=== PATIENT | male | born 1970 | race Caucasian/White ===

== ENCOUNTER 2018-05-21 16:25 | Emergency (ER) | END 2018-05-21 18:15 | disposition left against medical advice (07) | LOC: ER 16:25 | DX: Z53.21 Procedure and treatment not carried out due to patient leaving prior to being seen by health care provider (principal) ==

== ENCOUNTER 2019-10-23 05:51 | Inpatient (IN) | payer BC ==
[2019-10-23 06:47] LABS: ALKALINE PHOSPHATASE 75 U/L (38-126); ANION GAP 10 (5-19); ASPARTATE AMINO TRANSFERASE 26 U/L (17-59); BILIRUBIN,DIRECT 0.2 mg/dL (0.0-0.4); BILIRUBIN,TOTAL 0.9 mg/dL (0.2-1.3); BLOOD UREA NITROGEN 18 mg/dL (7-20); CALCIUM 9.9 mg/dL (8.4-10.2); CARBON DIOXIDE 31 mmol/L (22-30); CHLORIDE 95 mmol/L (98-107); GLUCOSE 164 mg/dL (75-110); POTASSIUM 4.7 mmol/L (3.6-5.0); TOTAL PROTEIN 7.6 g/dL (6.3-8.2)
[2019-10-23 06:52] LABS: ABSOLUTE EOSINOPHILS # (AUTO) 0.1 10^3/uL (0.0-0.6); ABSOLUTE LYMPHOCYTES (AUTO) 2.3 10^3/uL (0.5-4.7); ABSOLUTE MONOCYTES (AUTO) 0.9 10^3/uL (0.1-1.4); ABSOLUTE NEUT (AUTO) 7.9 10^3/uL (1.7-8.2); BASOPHILS % (AUTO) 0.4 % (0-2); HEMATOCRIT 45.8 % (37.9-51.0); HEMOGLOBIN 15.1 g/dL (13.5-17.0); LYMPHOCYTES % (AUTO) 20.2 % (13-45); MEAN CORPUSCULAR HEMOGLOBIN 25.4 pg (27.0-33.4); MEAN CORPUSCULAR HGB CONC 33.1 g/dL (32.0-36.0); MEAN CORPUSCULAR VOLUME 77 fl (80-97); MONOCYTES % (AUTO) 8.2 % (3-13); PLATELET COUNT 262 10^3/uL (150-450); RED BLOOD COUNT 5.96 10^6/uL (4.35-5.55); RED CELL DISTRIBUTION WIDTH 17.9 % (11.5-14.0); SEGMENTED NEUTROPHILS % (AUTO) 70.2 % (42-78); TOTAL CELLS COUNTED % (AUTO) 100 %; WHITE BLOOD COUNT 11.3 10^3/uL (4.0-10.5)
[2019-10-23] MEDS ORDERED: ONDANSETRON HCL INJ/PF 4 MG/2 ML SDV IV ONE (09:48)
[2019-10-23] MEDS ORDERED: KETOROLAC TROMETHAMINE INJ/PF 30 MG/1 ML SDV IV ONE (09:48)
--- NOTE | 2019-10-23 09:54 | ER Document Report ---
ED General - General Chief Complaint: Abdominal Pain Stated Complaint: LOWER ABDOMINAL PAIN Time Seen by Provider: 10/23/19 09:36 Notes: Patient is a 49-year-old white male with a past medical history of severe lower ventral wall abdominal hernia and diabetes who presents to the emergency department with a chief complaint of right upper quadrant abdominal pain that began about 3 days ago. He states he was eating [employer] pizza, he had just finished a pizza when he suddenly felt very bloated. He states he felt like his abdomen was distended and he was extremely full. He states later that night he began vomiting. He vomited several times overnight. States the next morning he was able to eat some soup and went about 24 hours without vomiting. He states yesterday he began vomiting again. He reports a burning sensation in the right upper quadrant, worse with lying back, better with pressing on it. Admits to ongoing nausea and vomiting. He denies any known fever or diarrhea. His last bowel movement was yesterday evening and was normal formed stool. He denies any radiation of pain. - Related Data Allergies/Adverse Reactions: codeine Allergy (Verified 10/23/19 05:59) Home Medications: LISINOPRIL Past Medical History - Social History Smoking Status: Former Smoker Chew tobacco use (# tins/day): Yes Family History: None Patient has suicidal ideation: No Patient has homicidal ideation: No Review of Systems - Review of Systems Gastrointestinal: Abdominal pain, Nausea, Vomiting -: Yes All other systems reviewed and negative Physical Exam - Vital signs Vitals: Temp Pulse Resp BP Pulse Ox 97.7 F 125 H 24 H 175/89 H 98 10/23/19 05:58 10/23/19 05:58 10/23/19 05:58 10/23/19 05:58 10/23/19 05:58 - General General appearance: Appears well, Alert In distress: None - Respiratory Respiratory status: No respiratory distress Chest status: Nontender Breath sounds: Normal Chest palpation: Normal - Cardiovascular Rhythm: Regular Heart sounds: Normal auscultation - Abdominal Inspection: Other - Morbidly obese abdomen, protuberant. There is a significant lower ventral wall hernia with bowel sounds present. He is tender in the right upper quadrant, reports pain worse with lying supine. Bowel sounds: Normal - Back Back: Normal, Nontender - Neurological Neuro grossly intact: Yes Cognition: Normal Orientation: AAOx4 Tin Coma Scale Eye Opening: Spontaneous Tin Coma Scale Verbal: Oriented [place] Coma Scale Motor: Obeys Commands [place] Coma Scale Total: 15 Speech: Normal - Psychological Associated symptoms: Normal affect, Normal mood - Skin Skin Temperature: Warm Skin Moisture: Dry Skin Color: Normal Course - Re-evaluation Re-evalutation: 10/23/19 11:[address] Gerber, surgery on-call regarding the patient's condition and the findings on CAT scan. He advised to get a preop EKG, NG tube and admit the patient to medicine service. I called and spoke with the hospitalist, Dr. Wolfe who advised he will come to the emergency department and evaluate the patient for admission. - Vital Signs Vital signs: Temp Pulse Resp BP Pulse Ox 98.5 F 103 H 20 137/92 H 93 10/23/19 13:29 10/23/19 13:29 10/23/19 13:29 10/23/19 13:29 10/23/19 13:29 - Laboratory Result Diagrams: 10/23/19 06:19 10/23/19 06:19 Laboratory results interpreted by me: 10/23/19 10/23/19 10/23/19 06:19 06:19 10:25 WBC 11.3 H RBC 5.96 H MCV 77 L MCH 25.4 L RDW 17.9 H VBG pH 7.47 H Sodium 136.3 L Chloride 95 L Carbon Dioxide 31 H Glucose 164 H Urine Protein Urine Ketones Urine Bilirubin 10/23/19 10:40 WBC RBC MCV MCH RDW VBG pH Sodium Chloride Carbon Dioxide Glucose Urine Protein >=500 H Urine Ketones TRACE H Urine Bilirubin SMALL H Discharge - Discharge Clinical Impression: Small bowel obstruction Condition: Stable Disposition: ADMITTED INPATIENT Admitting Provider: Aiden (Hospitalist) Unit Admitted: Surgical Floor
[2019-10-23 10:46] LABS: VENOUS BLOOD BASE EXCESS 5.6 mmol/L; VENOUS BLOOD PCO2 42.3 mmHg (35-63); VENOUS BLOOD PH 7.47 (7.30-7.42)
[2019-10-23 11:09] LABS: APPEARANCE,URINE SLIGHTLY-CLOUDY; BILIRUBIN,URINE SMALL (NEGATIVE); COLOR,URINE AMBER; GLUCOSE, URINE NEGATIVE (NEGATIVE); KETONES,URINE TRACE mg/dL (NEGATIVE); LEUKOCYTE ESTERASE,URINE NEGATIVE (NEGATIVE); NITRITE,URINE NEGATIVE (NEGATIVE); PROTEIN,URINE >=500 mg/dL (NEGATIVE); URINE SPECIFIC GRAVITY 1.028; UROBILINOGEN,URINE NEGATIVE mg/dL (<2.0)
[2019-10-23] MEDS ORDERED: NORMAL SALINE 1000 ML 1,000 ML IV ONE (11:28)
--- NOTE | 2019-10-23 11:31 | RADIOLOGY REPORT (SQ) ---
EXAM DESCRIPTION: CT ABD/PELVIS WITH IV ONLY COMPLETED DATE/TIME: 10/23/2019 9:54 am REASON FOR STUDY: abd pain/ vomit. Right upper quadrant abdominal pain. COMPARISON: None. TECHNIQUE: CT scan of the abdomen and pelvis performed using helical scanning technique with dynamic intravenous contrast injection. No oral contrast. Images reviewed with lung, soft tissue, and bone windows. Reconstructed coronal and sagittal MPR images reviewed. Delayed images for evaluation of the urinary system also acquired. All images stored on PACS. All CT scanners at this facility use dose modulation, iterative reconstruction, and/or weight based d osing when appropriate to reduce radiation dose to as low as reasonably achievable (ALARA). [facility]: Dose Right [facility]: CareDose [facility]: Dose Right [facility]: Teradose 4D [facility]: [employer] CONTRAST TYPE AND DOSE: contrast/concentration: Isovue 350.00 mg/ml; Total Contrast Delivered: 100.0 ml; Total Saline Delivered: 70.0 ml RENAL FUNCTION: GFR > 60. RADIATION DOSE: CT Rad equipment meets quality standard of care and radiation dose reduction techniq ues were employed. CTDIvol: 21.1 mGy. DLP: 2727 mGy-cm.. LIMITATIONS: None. FINDINGS: LOWER CHEST: No significant findings. No nodules or infiltrates. LIVER: The liver has normal size and contour. There is moderate diffuse hepatic steatosis. No focal hepatic mass. Hepatic and portal veins are patent. SPLEEN: Normal size. No focal lesions. PANCREAS: No masses. No significant calcifications. No adjacent inflammation or peripancreatic fluid collections. Pancreatic duct not dilated. GALLBLADDER: No identified stones by CT criteria. No inflammatory changes to suggest cholecystitis. ADRENAL GLANDS: No significant masses or asymmetry. RIGHT KIDNEY AND URETER: No solid masses. No significant calcifications. No hydronephrosis or hyd roureter. LEFT KIDNEY AND URETER: No solid masses. No significant calcifications. No hydronephrosis or hydr oureter. AORTA AND VESSELS: No aneurysm. No dissection. Renal arteries, SMA, celiac without stenosis. RETROPERITONEUM: No retroperitoneal adenopathy, hemorrhage or masses. BOWEL AND PERITONEAL CAVITY: Multiple loops of dilated small bowel. There is a ventral hernia contai candelario loops of small bowel with abdominal wall defect measuring 5 cm diameter. There is a transition point in the small bowel within the hernia sac. No surrounding fluid or evidence of pneumatosis inte stinalis. The distal small bowel and colon are decompressed. There is no fluid in the hernia sac. No pneumoperitoneum or significant ascites. APPENDIX: Not visualized. PELVIS: The urinary bladder is decompressed. Prostate has normal size. ABDOMINAL WALL: Ventral hernia as described. Subcutaneous cellulitis involving the pannus. No subcu taneous fluid collection. BONES: No significant or acute findings. OTHER: No other significant finding. IMPRESSION: 1. Small-bowel obstruction with transition point within a ventral hernia. No evidence of bowel ische johana or perforation. 2. Moderate hepatic steatosis. COMMENT: Findings discussed with Silverio PEREZ on 10/23/2019 at 1122 hours. TECHNICAL DOCUMENTATION: JOB ID: [id number] Quality ID # [id number]: Final reports with documentation of one or more dose reduction techniques (e.g., Au tomated exposure control, adjustment of the mA and/or kV according to patient size, use of iterative reconstruction technique) 2010 [employer]- All Rights Reserved Reading location - IP/workstation name: [email or web address]
[2019-10-23] MEDS ORDERED: ROCURONIUM BROMIDE INJ 50 MG/5 ML VIAL IV ONE (11:43)
[2019-10-23] MEDS ORDERED: SUCCINYLCHOLINE CHLORIDE INJ 200 MG/10 ML VIAL ONE (11:43)
[2019-10-23] MEDS ORDERED: LIDOCAINE 2% INJ-PF (20 MG/ML) 2 ML AMPUL ONE (11:43)
[2019-10-23] MEDS ORDERED: ONDANSETRON HCL INJ/PF 4 MG/2 ML SDV IV PRN (12:33)
[2019-10-23] MEDS: RINGERS SOLUTION,LACTATED 1,000 ML IV PRN (13:20)
[2019-10-23] MEDS: ENALAPRILAT DIHYDRATE INJ/PF 1.25 MG/1 ML SDV IV SCH ×2 (13:53→23:13)
--- NOTE | 2019-10-23 14:11 | RADIOLOGY REPORT (SQ) ---
EXAM DESCRIPTION: CHEST SINGLE VIEW COMPLETED DATE/TIME: 10/23/2019 1:18 pm REASON FOR STUDY: post NG tube placement COMPARISON: None. EXAM PARAMETERS: NUMBER OF VIEWS: One view. TECHNIQUE: Single frontal radiographic view of the chest acquired for nasogastric tube placement. RADIATION DOSE: NA LIMITATIONS: Morbidly obese patient, portable technique FINDINGS: Nasogastric tube is seen in the esophagus over the lower thoracic spine. Tip and side-por t appear to be in stomach IMPRESSION: Nasogastric tube in good positioning TECHNICAL DOCUMENTATION: JOB ID: [id number] [employer]- All Rights Reserved Reading location - IP/workstation name: [email or web address]
[2019-10-23] MEDS ORDERED: VANCOMYCIN HCL INJ 1000 MG VIAL IV ONE (16:34)
[2019-10-23] MEDS ORDERED: VANCOMYCIN HCL 0 MG in DEXTROSE 5%-WATER 250 ML IV NR (16:45)
--- NOTE | 2019-10-23 16:50 | PDOC CONSULTATION ---
Consultation Consult Date: 10/23/19 Provider Consulted: DEMAR SORENSEN Consult reason:: Incarcerated and strangulated ventral hernia History of Present Illness Admission Date/PCP: 10/23/19 13:02 History of Present Illness: BRENDA MORALES is a 49 year old male, morbidly obese, BMI of 62, with an 8-year history of mid abdominal umbilical hernia which has grown in size causing discomfort. The patient gives a history of having eaten 1 pizza 3 nights ago following that he started complaining of abdominal pain, intense nausea, and emesis for the past 24 hours my. His last bowel movement was yesterday morning. No fever, no chills, no blood per rectum:. He has borderline diabetes, hypertension. A CT scan of the abdomen pelvis done today reveals a large, lower midline ventral hernia with a transition point in 1 of the loops of the incarcerated small bowel. His white blood cell count demonstrates a slight leukocytosis (11.3), his metabolic profile is within the normal limits, his fast ing blood sugars is 164, and his troponin is normal. Past Medical History Cardiac Medical History: Reports: Hypertension Endocrine Medical History: Reports: Diabetes Mellitus Type 2 - unmedicated Social History Smoking Status: Former Smoker Family History Family History: None, CAD, Hyperlipidemia, Malignancy Parental Family History Reviewed: No Children Family History Reviewed: No Sibling(s) Family History Reviewed.: No Medication/Allergy Home Medications: Aspirin [Ecotrin 81 mg EC Tablet] 81 mg PO DAILY 10/23/19 Lisinopril/Hydrochlorothiazide [Zestoretic 20-25 mg Tablet] 1 tab PO DAILY 10/23/19 Allergies/Adverse Reactions: codeine Allergy (Verified 10/23/19 14:09) Physical Exam Vital Signs: Temp Pulse Resp BP Pulse Ox 98.5 F 103 H 19 131/81 H 94 10/23/19 13:29 10/23/19 13:29 10/23/19 14:01 10/23/19 15:00 10/23/19 15:01 Intake & Output 10/22/19 10/23/19 10/24/19 06:59 06:59 06:59 Intake Total 1000 Output Total 850 Balance 150 Weight 191 kg General appearance: PRESENT: mild distress, obese Head exam: PRESENT: atraumatic, normocephalic Eye exam: PRESENT: EOMI Mouth exam: PRESENT: moist, neck supple, other - Obese Neck exam: PRESENT: full ROM Respiratory exam: PRESENT: clear to auscultation ozzy, decreased breath sounds Cardiovascular exam: PRESENT: RRR GI/Abdominal exam: PRESENT: hypoactive bowel sounds, soft, tenderness - On palpation of the lower midline abdomen just above the hernia site, other - Large for obesity, with large lower abdominal pannus containing the incarcerated bowel; skin overlying the hernia is erythematous, painful on palpation Rectal exam: PRESENT: deferred Extremities exam: PRESENT: full ROM Musculoskeletal exam: PRESENT: full ROM Neurological exam: PRESENT: alert, awake, oriented to time, CN II-XII grossly intact Psychiatric exam: PRESENT: agitated, anxious, depressed Skin exam: PRESENT: warm Results Laboratory Results: 10/23/19 06:19 10/23/19 06:19 10/23/19 10/23/19 10/23/19 06:19 06:19 10:25 WBC 11.3 H RBC 5.96 H Hgb 15.1 Hct 45.8 MCV 77 L MCH 25.4 L MCHC 33.1 RDW 17.9 H Plt Count 262 Seg Neutrophils % 70.2 VBG pH 7.47 H VBG pCO2 42.3 VBG HCO3 30.0 VBG Base Excess 5.6 Sodium 136.3 L Potassium 4.7 Chloride 95 L Carbon Dioxide 31 H Anion Gap 10 BUN 18 Creatinine 1.05 Est GFR ( Amer) > 60 Glucose 164 H Calcium 9.9 Total Bilirubin 0.9 AST 26 Alkaline Phosphatase 75 Total Protein 7.6 Albumin 4.0 Lipase 40.2 Urine Color Urine Appearance Urine pH Ur Specific [place] Urine Protein Urine Glucose (UA) Urine Ketones Urine Blood Urine Nitrite Ur Leukocyte Esterase Urine WBC (Auto) Urine RBC (Auto) 10/23/19 10:40 WBC RBC Hgb Hct MCV MCH MCHC RDW Plt Count Seg Neutrophils % VBG pH VBG pCO2 VBG HCO3 VBG Base Excess Sodium Potassium Chloride Carbon Dioxide Anion Gap BUN Creatinine Est GFR ( Amer) Glucose Calcium Total Bilirubin AST Alkaline Phosphatase Total Protein Albumin Lipase Urine Color [place] Urine Appearance SLIGHTLY-CLOUDY Urine pH 5.0 Ur Specific [place] 1.028 Urine Protein >=500 H Urine Glucose (UA) NEGATIVE Urine Ketones TRACE H Urine Blood NEGATIVE Urine Nitrite NEGATIVE Ur Leukocyte Esterase NEGATIVE Urine WBC (Auto) 2 Urine RBC (Auto) 7 10/23/19 06:19 Troponin I 0.012 Impressions: Chest X-Ray 10/23/19 00:00 IMPRESSION: Nasogastric tube in good positioning Abdomen/Pelvis CT 10/23/19 09:48 IMPRESSION: 1. Small-bowel obstruction with transition point within a ventral hernia. No evidence of bowel ischemia or perforation. 2. Moderate hepatic steatosis. Assessment & Plan - Diagnosis (1) Morbid obesity Is this a current diagnosis for this admission?: Yes (2) Incarcerated ventral hernia Is this a current diagnosis for this admission?: Yes (3) Small bowel obstruction Is this a current diagnosis for this admission?: Yes - Plan Summary Plan Summary: Assessment: Intense nausea, vomiting and abdominal pain for the past 3 days Physical exam demonstrates a large lower abdominal pannus containing loops of small bowel with erythema of the overlying skin Ventral hernia is incarcerated, possibly strangulated by physical exam due to the presence of pain and erythema of the skin CT scan of the abdomen pelvis confirms the physical findings Slight leukocytosis 11.3 Past medical history significant for type 2 diabetes (fasting blood sugar 164) Hypertension Morbid obesity with BMI of 62 Plan: Open ventral hernia repair with absorbable mesh and bilateral component separation tonight Procedure, risks, benefits, complications, alternatives, have been fully explained to the patient including the possibility of respiratory failure, prolonged endotracheal intubation, pneumonia, abdominal wound infection, bowel injury, stroke, preoperative and / or postoperative have been fully discussed with the patient, his questions answered to his satisfaction, and he decides to proceed Mefoxin 2 g IV piggyback preop Vancomycin 1.5 g IV piggyback preop Preop EKG
[2019-10-23] MEDS ORDERED: CEFTRIAXONE 2 GM/D5W RTU 2 GM/50 ML RTUPB IV ONE (17:30)
[2019-10-23] MEDS ORDERED: FENTANYL CITRATE INJ/PF 250 MCG/5 ML AMPULE ONE ×2 (17:37→18:53)
[2019-10-23] MEDS ORDERED: MORPHINE SULFATE 10 MG/ML INJ ONE (17:38)
[2019-10-23] MEDS ORDERED: PROPOFOL INJ 200 MG/20 ML VIAL IV ONE (17:38)
[2019-10-23] MEDS ORDERED: MIDAZOLAM 2 MG/2 ML INJ ONE ×4 (17:38→23:33)
--- NOTE | 2019-10-23 17:52 | PDOC H&P ---
History of Present Illness Admission Date/PCP: 10/23/19 13:02 History of Present Illness: BRENDA MORALES is a 49 year old male with a history of hypertension and morbid obesity who has had a ventral hernia for some time and said he began to have some increased abdominal discomfort along with some nausea and vomiting this been getting progressively worse over the past few days. He is not been having any fevers. He is not able to keep any food down. He said he has not taken his blood pressure medicine in a couple of days because every time he tries to take something by mouth he just vomits it back up. He had a CT scan done in the ER that shows a small bowel obstruction. Surgery was consulted and because of his medical issues requested that the hospitalist service admit. Past Medical History Cardiac Medical History: Reports: Hypertension Endocrine Medical History: Reports: Diabetes Mellitus Type 2 - unmedicated Social History Smoking Status: Former Smoker Family History Family History: None, CAD, Hyperlipidemia, Malignancy Parental Family History Reviewed: Yes Children Family History Reviewed: Yes Sibling(s) Family History Reviewed.: Yes Medication/Allergy Home Medications: Aspirin [Ecotrin 81 mg EC Tablet] 81 mg PO DAILY 10/23/19 Lisinopril/Hydrochlorothiazide [Zestoretic 20-25 mg Tablet] 1 tab PO DAILY 10/23/19 Allergies/Adverse Reactions: codeine Allergy (Verified 10/23/19 14:09) Review of Systems All systems: reviewed and no additional remarkable complaints except as stated - All systems were reviewed and were negative except as noted in the HPI Physical Exam Vital Signs: Temp Pulse Resp BP Pulse Ox 98.5 F 103 H 13 132/82 H 94 10/23/19 13:29 10/23/19 13:29 10/23/19 17:01 10/23/19 17:00 10/23/19 17:01 Intake & Output 10/22/19 10/23/19 10/24/19 06:59 06:59 06:59 Intake Total 1000 Output Total 1650 Balance -650 Weight 191 kg General appearance: PRESENT: cooperative, disheveled, mild distress, morbidly obese Head exam: PRESENT: atraumatic, normocephalic Eye exam: PRESENT: EOMI, PERRLA. ABSENT: conjunctival injection, nystagmus, scleral icterus Ear exam: PRESENT: normal external ear exam Mouth exam: PRESENT: dry mucosa, neck supple Throat exam: ABSENT: post pharyngeal erythema Neck exam: PRESENT: full ROM. ABSENT: carotid bruit, JVD, lymphadenopathy, meningismus, tenderness, thyromegaly Respiratory exam: PRESENT: clear to auscultation ozzy, symmetrical, unlabored. ABSENT: accessory muscle use, chest wall tenderness, crackles, prolonged expiratory phas, rales, retraction, rhonchi, tachypnea, wheezes Cardiovascular exam: PRESENT: RRR, +S1, +S2 Pulses: PRESENT: normal carotid pulses Vascular exam: PRESENT: normal capillary refill GI/Abdominal exam: PRESENT: diminished bowel sounds, distended, hernia, soft, tenderness, other - He has some venous stasis in his lower abdomen with some cool erythema. ABSENT: guarding, rebound Extremities exam: PRESENT: pedal edema - Nonpitting. ABSENT: clubbing Musculoskeletal exam: PRESENT: ambulatory, normal inspection. ABSENT: deformity Neurological exam: PRESENT: alert, awake, oriented to person, oriented to place, oriented to time, oriented to situation, CN II-XII grossly intact. ABSENT: motor sensory deficit Psychiatric exam: PRESENT: appropriate affect, normal mood Skin exam: PRESENT: dry, warm Results Laboratory Results: 10/23/19 06:19 10/23/19 06:19 10/23/19 10/23/19 10/23/19 06:19 06:19 10:25 WBC 11.3 H RBC 5.96 H Hgb 15.1 Hct 45.8 MCV 77 L MCH 25.4 L MCHC 33.1 RDW 17.9 H Plt Count 262 Seg Neutrophils % 70.2 VBG pH 7.47 H VBG pCO2 42.3 VBG HCO3 30.0 VBG Base Excess 5.6 Sodium 136.3 L Potassium 4.7 Chloride 95 L Carbon Dioxide 31 H Anion Gap 10 BUN 18 Creatinine 1.05 Est GFR ( Amer) > 60 Glucose 164 H Calcium 9.9 Total Bilirubin 0.9 AST 26 Alkaline Phosphatase 75 Total Protein 7.6 Albumin 4.0 Lipase 40.2 Urine Color Urine Appearance Urine pH Ur Specific [place] Urine Protein Urine Glucose (UA) Urine Ketones Urine Blood Urine Nitrite Ur Leukocyte Esterase Urine WBC (Auto) Urine RBC (Auto) 10/23/19 10:40 WBC RBC Hgb Hct MCV MCH MCHC RDW Plt Count Seg Neutrophils % VBG pH VBG pCO2 VBG HCO3 VBG Base Excess Sodium Potassium Chloride Carbon Dioxide Anion Gap BUN Creatinine Est GFR ( Amer) Glucose Calcium Total Bilirubin AST Alkaline Phosphatase Total Protein Albumin Lipase Urine Color [place] Urine Appearance SLIGHTLY-CLOUDY Urine pH 5.0 Ur Specific [place] 1.028 Urine Protein >=500 H Urine Glucose (UA) NEGATIVE Urine Ketones TRACE H Urine Blood NEGATIVE Urine Nitrite NEGATIVE Ur Leukocyte Esterase NEGATIVE Urine WBC (Auto) 2 Urine RBC (Auto) 7 10/23/19 06:19 Troponin I 0.012 Impressions: Chest X-Ray 10/23/19 00:00 IMPRESSION: Nasogastric tube in good positioning Abdomen/Pelvis CT 10/23/19 09:48 IMPRESSION: 1. Small-bowel obstruction with transition point within a ventral hernia. No evidence of bowel ischemia or perforation. 2. Moderate hepatic steatosis. Assessment and Plan - Diagnosis (1) Incarcerated ventral hernia Is this a current diagnosis for this admission?: Yes (2) Morbid obesity Is this a current diagnosis for this admission?: Yes (3) Small bowel obstruction Is this a current diagnosis for this admission?: Yes - Plan Summary Summary: We will put an NG tube to decompress. He is n.p.o. He is on IV fluids now. Pain and nausea control. General surgery has been consulted. Will await their recommendation. If the hernia is incarcerated he will likely need surgery. - Time Time Spent with patient: 35 or more minutes - Inpatient Certification Based on my medical assessment, after consideration of the patient's comorbidities, presenting symptoms, or acuity I expect that the services needed warrant INPATIENT care.: Yes I certify that my determination is in accordance with my understanding of Medicare's requirements for reasonable and necessary INPATIENT services [42 CFR 412.3e].: Yes Medical Necessity: Need For IV Fluids, Need For Continuous Telemetry Monitoring, Need for Pain Control, Need for Surgery
[2019-10-23] MEDS ORDERED: EPHEDRINE SULFATE INJ 50 MG/1 ML AMPULE ONE (18:54)
--- NOTE | 2019-10-23 19:37 | EKG REPORT ---
SEVERITY:- ABNORMAL ECG - SINUS TACHYCARDIA LEFT AXIS DEVIATION LEFT VENTRICULAR HYPERTROPHY : Confirmed by: Sandra Orta MD 23-Oct-2019 19:36:01
[2019-10-23] MEDS ORDERED: VANCOMYCIN HCL 2,000 MG in DEXTROSE 5%-WATER 500 ML IV ONE (20:00)
[2019-10-23] MEDS ORDERED: BUPIVACAINE INJ/PF LIPOSOME/PF 266 MG/20 ML SDV ONE (20:52)
[2019-10-23] MEDS ORDERED: FENTANYL CITRATE INJ/PF 100 MCG/2 ML AMPUL ONE (22:23)
[2019-10-23] MEDS ORDERED: DEXMEDETOMIDINE IN 0.9 % NACL 400 MCG/100 ML RTUPB IV PRN (22:23)
--- NOTE | 2019-10-23 22:31 | Operative Report ---
Nonrecallable Operative Report DATE OF SURGERY: 10/23/19 PREOPERATIVE DIAGNOSIS: Incarcerated ventral hernia POSTOPERATIVE DIAGNOSIS: Umbilical incarcerated hernia OPERATION: Open repair of incarcerated umbilical hernia with absorbable mesh; bilateral component separation SURGEON: DEMAR SORENSEN ANESTHESIA: Other - 20 mL Exparel TISSUE REMOVED OR ALTERED: hernia sac and content COMPLICATIONS: none ESTIMATED BLOOD LOSS: 50 mL INTRAOPERATIVE FINDINGS: incarcerated umbilical hernia containing bowel and greater omentum; defect measuring 10 cm in diameter PROCEDURE: The procedure was done in the operating room, the patient was placed in a supine position, ET intubation performed by the anesthesiologist, the abdomen was prepped draped in the sterile fashion. A nasogastric tube a Whitney catheter was placed prior to this. A midline incision was made just above the hernia skin and the subcutaneous tissue was divided with Bovie. The hernia sac was identified and circumferentially dissected down to fascia. The subcutaneous fat was then dissected off the fascia on either side starting from the midline toward the anterior axillary line for entire length of the hernia defect. This was done bilaterally; after this the external oblique fascia was divided longitudinally along the anterior axillary line to then curve toward the midline superiorly and inferiorly. This allowed that a bilateral component separation be performed. The sac was then entered, the small bowel contents were returned inside the peritoneal cavity; a large amount of omental tissue was excised together with the hernia sac along the edges of the defect. The specimen was removed from the surgical field and sent to pathology. Once the sac was excised, the hernia defect measured approximately 10 x 10 cm. A large piece of absorbable mesh was cut to size, soaked in normal saline placed inside the peritoneal cavity and secured to the posterior aspect of the anterior abdominal wall using interrupted 0 Prolene horizontal mattress sutures equally spaced while paying attention not to injure the bowel. When this was accomplished, the sutures were tied against the posterior aspect of the anterior abdominal wall. The abdominal wall defect was closed with running #1 looped PDS suture which allowed easy approximation of the fascia edges along the midline. Two #2 nylon retention sutures were placed through the skin and anterior rectus sheath on either side and left untied. A #15 blade was used to make a stab wound in the lower aspect of the hernia defect on either side and a 15 Albanian round Junior drain was inserted through the incision inside the hernia defect. Attention was paid that these drains where not incorporated by the retention sutures and secured to the skin with a 3-0 nylon sutures. The hernia defect was then irrigated with normal saline until clear and local bleeders were either cauterized or suture ligated with 3-0 silk sutures. 10 mL of FloSeal was sprayed on the wound bed and the skin as well as the subcutaneous tissue of the wound edges was trimmed to length with Bovie. The midline incision was closed with deep interrupted [id number] Vicryl sutures so to approximate the subcutaneous tissue and the skin was closed with jasmin. The untied retention sutures were inserted through a 14 Albanian red rubber catheter and then loosely approximated along the midline. Sterile dressings were applied over the midline incision as well as a sponges over the drain sites. The patient tolerated procedure well, kept intubated, and transferred to the ICU in satisfactory conditions.
[2019-10-23] MEDS ORDERED: DEXMEDETOMIDINE IN 0.9 % NACL 400 MCG/100 ML RTUPB IV ONE (22:37)
[2019-10-23] MEDS ORDERED: DEXTROSE 40% GEL 15 GM TUBE PO PRN ×2 (22:42)
[2019-10-23] MEDS ORDERED: DEXTROSE 50%-WATER 25 GM/50 ML DISP.SYRIN IV PRN ×2 (22:42)
[2019-10-23] MEDS ORDERED: GLUCAGON,HUMAN RECOMB 1 MG INJ IM PRN (22:42)
[2019-10-23] MEDS ORDERED: PHARMACY COMMUNICATION ORDER MC NR (22:45)
[2019-10-23] MEDS ORDERED: FENTANYL CITRATE INJ/PF 100 MCG/2 ML AMPUL IV ONE (23:00)
[2019-10-23 23:06] LABS: ARTERIAL BLOOD BASE EXCESS -0.8 mmol/L; ARTERIAL BLOOD FIO2 40%; ARTERIAL BLOOD H2CO3 1.91 mmol/L (1.05-1.35); ARTERIAL BLOOD HCO3 27.7 mmol/L (20-24); ARTERIAL BLOOD O2 SATURATION 90.7 % (94-98); ARTERIAL BLOOD PCO2 63.6 mmHg (35-45); ARTERIAL BLOOD PH 7.26 (7.35-7.45); ARTERIAL BLOOD PO2 69.2 mmHg (80-100); ARTERIAL BLOOD TOTAL CO2 29.7 mmol/L (23-27)
[2019-10-23] MEDS: INSULIN REG, HUMAN 100 UNIT/ML 3 ML VIAL (PYX) SUBCUT SCH (23:29)
[2019-10-23] MEDS ORDERED: PROPOFOL 1,000 MG/100 ML INFUS..BTL IV ONE (23:39)
[2019-10-23] MEDS: PROPOFOL 1,000 MG/100 ML INFUS..BTL IV PRN (23:59)
[2019-10-23] MEDS ORDERED: MIDAZOLAM 2 MG/2 ML INJ IV ONE (23:59)
[2019-10-24] MEDS: RINGERS SOLUTION,LACTATED 1,000 ML IV PRN ×4 (00:06→19:43)
[2019-10-24] MEDS: ENALAPRILAT DIHYDRATE INJ/PF 1.25 MG/1 ML SDV IV SCH ×4 (00:07→17:08)
--- NOTE | 2019-10-24 00:08 | RADIOLOGY REPORT (SQ) ---
EXAM DESCRIPTION: [facility]: XR CHEST 1 VIEW, XR ABDOMEN 1 VIEW (KUB) CLINICAL HISTORY: 49 years Male; intubated; FINDINGS: AP chest at 2312. No previous chest radiographs. The exam was obtained earlier today only showed the lower chest, for NG tube placement. Endotracheal tube is 2.8 cm above jomar. There is dense consolidation of the right upper lobe, with minimal air bronchograms. Partial atelectasis in the left upper lobe. Superior mediastinum appears wide as result of this. No pneumothorax or significant pleural effusion. AP of upper abdomen at 2312: Nasogastric tube tip in the body the stomach. No upper abdominal bowel distention. IMPRESSION: 1. Intubated 2. Dense consolidation of right upper lobe, likely infiltrate/atelectasis. Cannot exclude an underlying neoplasm. Consider follow-up CT chest if this does not improve after intubation. 3. Nasogastric tube tip in the stomach.
[2019-10-24 00:14] LABS: ANION GAP 10 (5-19); BLOOD UREA NITROGEN 25 mg/dL (7-20); CALCIUM 8.1 mg/dL (8.4-10.2); CARBON DIOXIDE 29 mmol/L (22-30); CHLORIDE 97 mmol/L (98-107); GLUCOSE 176 mg/dL (75-110); PHOSPHORUS 7.1 mg/dL (2.5-4.5); POTASSIUM 4.3 mmol/L (3.6-5.0)
[2019-10-24] MEDS: PROPOFOL 1,000 MG/100 ML INFUS..BTL IV PRN ×4 (01:16→08:16)
[2019-10-24] MEDS ORDERED: RINGERS SOLUTION,LACTATED 1,000 ML IV ONE (02:00)
[2019-10-24] MEDS ORDERED: INFLUENZA QUAD (6MOS+) 2019-20 VAC 0.5 ML SYR IM ONE (02:22)
[2019-10-24] MEDS ORDERED: FENTANYL CITRATE INJ/PF 100 MCG/2 ML AMPUL ONE (03:03)
[2019-10-24 03:25] LABS: ARTERIAL BLOOD BASE EXCESS 3.4 mmol/L; ARTERIAL BLOOD H2CO3 1.54 mmol/L (1.05-1.35); ARTERIAL BLOOD HCO3 29.5 mmol/L (20-24); ARTERIAL BLOOD O2 SATURATION 95.5 % (94-98); ARTERIAL BLOOD PCO2 51.2 mmHg (35-45); ARTERIAL BLOOD PH 7.38 (7.35-7.45); ARTERIAL BLOOD PO2 80.4 mmHg (80-100)
[2019-10-24 03:26] LABS: ARTERIAL BLOOD FIO2 50%
[2019-10-24] MEDS ORDERED: FENTANYL CITRATE INJ/PF 100 MCG/2 ML AMPUL IV ONE (03:30)
[2019-10-24 04:33] LABS: HEMATOCRIT 36.9 % (37.9-51.0); MEAN CORPUSCULAR HEMOGLOBIN 24.7 pg (27.0-33.4); MEAN CORPUSCULAR HGB CONC 32.1 g/dL (32.0-36.0); MEAN CORPUSCULAR VOLUME 77 fl (80-97); PLATELET COUNT 228 10^3/uL (150-450); RED CELL DISTRIBUTION WIDTH 17.7 % (11.5-14.0); WHITE BLOOD COUNT 8.8 10^3/uL (4.0-10.5)
[2019-10-24 04:37] LABS: HEMOGLOBIN 11.8 g/dL (13.5-17.0)
[2019-10-24 04:41] LABS: ANION GAP 11 (5-19); BLOOD UREA NITROGEN 29 mg/dL (7-20); CALCIUM 7.8 mg/dL (8.4-10.2); CARBON DIOXIDE 27 mmol/L (22-30); CHLORIDE 98 mmol/L (98-107); GLUCOSE 113 mg/dL (75-110); POTASSIUM 4.4 mmol/L (3.6-5.0)
[2019-10-24] MEDS ORDERED: RINGERS SOLUTION,LACTATED 500 ML IV ONE (06:00)
[2019-10-24] MEDS ORDERED: MORPHINE SULFATE 10 MG/ML INJ ONE (08:12)
[2019-10-24] MEDS: INSULIN REG, HUMAN 100 UNIT/ML 3 ML VIAL (PYX) SUBCUT SCH ×4 (08:15→21:22)
--- NOTE | 2019-10-24 08:22 | RADIOLOGY REPORT (SQ) ---
EXAM DESCRIPTION: CHEST SINGLE VIEW COMPLETED DATE/TIME: 10/24/2019 7:39 am REASON FOR STUDY: f/u RUL collapse for interval improvement COMPARISON: 10/23/2019 EXAM PARAMETERS: NUMBER OF VIEWS: One view. TECHNIQUE: Single frontal radiographic view of the chest acquired. RADIATION DOSE: NA LIMITATIONS: None. FINDINGS: LUNGS AND PLEURA: Low lung volumes. Improved aeration of previously seen right upper lobe collapse. Interstitial crowding. Persistent retrocardiac opacity on the left. No large effusion. No pneumothorax. MEDIASTINUM AND HILAR STRUCTURES: No masses. Contour normal. HEART AND VASCULAR STRUCTURES: Heart normal in size. Normal vasculature. BONES: No acute findings. HARDWARE: Endotracheal tube tip overlies midthoracic trachea. Enteric tube tip overlies gastric body . OTHER: No other significant finding. IMPRESSION: 1. Improved aeration of right upper lobe collapse. 2. Low lung volumes with persistent left retrocardiac opacity. Stable support lines and tubes. TECHNICAL DOCUMENTATION: JOB ID: [id number] [employer]- All Rights Reserved Reading location - IP/workstation name: [email or web address]
--- NOTE | 2019-10-24 09:52 | PDOC PROGRESS REPORT ---
Subjective Progress Note for:: 10/24/19 Subjective:: Patient intubated, sedated, however he is arousable and responds appropriately to commands and moves all 4 extremities Reason For Visit: SBO Physical Exam Vital Signs: Temp Pulse Resp BP Pulse Ox 98.3 F 87 20 112/64 96 10/24/19 05:22 10/24/19 01:21 10/24/19 07:00 10/24/19 06:55 10/24/19 08:37 Intake & Output 10/23/19 10/24/19 10/25/19 06:59 06:59 06:59 Intake Total 4139 2850 Output Total 4060 350 Balance 79 2500 Weight 191 kg 196.1 kg General appearance: PRESENT: no acute distress, obese Neck exam: PRESENT: other - ET tube in place Respiratory exam: PRESENT: decreased breath sounds Cardiovascular exam: PRESENT: RRR GI/Abdominal exam: PRESENT: other - Large for obesity, binder in place, surgical incision clean, bilateral Junior intra-abdominal drains filled with serosanguineous fluid Results Laboratory Results: 10/24/19 03:59 10/24/19 03:59 10/23/19 10/23/19 10/23/19 10:25 10:40 22:50 WBC RBC Hgb Hct MCV MCH MCHC RDW Plt Count Carbonic Acid 1.91 H HCO3/H2CO3 Ratio 14:1 ABG pH 7.26 L ABG pCO2 63.6 H ABG pO2 69.2 L ABG HCO3 27.7 H ABG O2 Saturation 90.7 L ABG Base Excess -0.8 VBG pH 7.47 H VBG pCO2 42.3 VBG HCO3 30.0 VBG Base Excess 5.6 FiO2 40% Sodium Potassium Chloride Carbon Dioxide Anion Gap BUN Creatinine Est GFR ( Amer) Glucose Calcium Phosphorus Magnesium Urine Color [place] Urine Appearance SLIGHTLY-CLOUDY Urine pH 5.0 Ur Specific [place] 1.028 Urine Protein >=500 H Urine Glucose (UA) NEGATIVE Urine Ketones TRACE H Urine Blood NEGATIVE Urine Nitrite NEGATIVE Ur Leukocyte Esterase NEGATIVE Urine WBC (Auto) 2 Urine RBC (Auto) 7 10/23/19 10/24/19 10/24/19 23:41 03:10 03:59 WBC 8.8 RBC 4.80 Hgb 11.8 L D Hct 36.9 L MCV 77 L MCH 24.7 L MCHC 32.1 RDW 17.7 H Plt Count 228 Carbonic Acid 1.54 H HCO3/H2CO3 Ratio 19:1 ABG pH 7.38 ABG pCO2 51.2 H ABG pO2 80.4 ABG HCO3 29.5 H ABG O2 Saturation 95.5 ABG Base Excess 3.4 VBG pH VBG pCO2 VBG HCO3 VBG Base Excess FiO2 50% Sodium 136.1 L Potassium 4.3 Chloride 97 L Carbon Dioxide 29 Anion Gap 10 BUN 25 H Creatinine 1.65 H Est GFR ( Amer) 53 L Glucose 176 H Calcium 8.1 L Phosphorus 7.1 H Magnesium 1.8 Urine Color Urine Appearance Urine pH Ur Specific [place] Urine Protein Urine Glucose (UA) Urine Ketones Urine Blood Urine Nitrite Ur Leukocyte Esterase Urine WBC (Auto) Urine RBC (Auto) 10/24/19 03:59 WBC RBC Hgb Hct MCV MCH MCHC RDW Plt Count Carbonic Acid HCO3/H2CO3 Ratio ABG pH ABG pCO2 ABG pO2 ABG HCO3 ABG O2 Saturation ABG Base Excess VBG pH VBG pCO2 VBG HCO3 VBG Base Excess FiO2 Sodium 135.9 L Potassium 4.4 Chloride 98 Carbon Dioxide 27 Anion Gap 11 BUN 29 H Creatinine 1.91 H Est GFR ( Amer) 45 L Glucose 113 H Calcium 7.8 L Phosphorus Magnesium Urine Color Urine Appearance Urine pH Ur Specific [place] Urine Protein Urine Glucose (UA) Urine Ketones Urine Blood Urine Nitrite Ur Leukocyte Esterase Urine WBC (Auto) Urine RBC (Auto) 10/23/19 06:19 Troponin I 0.012 Impressions: Abdomen/Pelvis CT 10/23/19 09:48 IMPRESSION: 1. Small-bowel obstruction with transition point within a ventral hernia. No evidence of bowel ischemia or perforation. 2. Moderate hepatic steatosis. KUB X-Ray 10/23/19 22:32 IMPRESSION: 1. Intubated 2. Dense consolidation of right upper lobe, likely infiltrate/atelectasis. Cannot exclude an underlying neoplasm. Consider follow-up CT chest if this does not improve after intubation. 3. Nasogastric tube tip in the stomach. Chest X-Ray 10/24/19 00:00 IMPRESSION: 1. Improved aeration of right upper lobe collapse. 2. Low lung volumes with persistent left retrocardiac opacity. Stable support lines and tubes. Assessment & Plan - Diagnosis (1) Morbid obesity Is this a current diagnosis for this admission?: Yes (2) Incarcerated ventral hernia Is this a current diagnosis for this admission?: Yes (3) Small bowel obstruction Is this a current diagnosis for this admission?: Yes - Time Time Spent with patient: 25-34 minutes - Plan Summary Plan Summary: Assessment: Postoperative day #1 following open umbilical herniorrhaphy with absorbable mesh and bilateral component separation Patient currently intubated and sedated, arousable and responds appropriately to commands Vital signs stable Good urine output Elevated nasogastric tube output about 1600 CBC within normal limits Metabolic profile shows elevated BUN and creatinine 29 and 1.9, respectively This x-ray done this morning demonstrates right lower lobe atelectasis versus infiltrate with improved aeration of the right upper lobe Question of aspiration pneumonia is currently entertained Plan: Continue current management as per the optical instrument assembler Junior intra-abdominal drain to bulb suction this afternoon Start cutaneous heparin this afternoon for DVT prophylaxis
--- NOTE | 2019-10-24 09:52 | PDOC CONSULTATION ---
Consultation Consult Date: 10/23/19 Attending physician:: RICHIE CHAVARRIA Provider Consulted: MAKEDA JEFFREY Consult reason:: Consulted by Dr Gerber solely for encounter for weaning from mechanical ventilator, management of HTN & DM while in ICU. History of Present Illness Admission Date/PCP: 10/23/19 13:02 History of Present Illness: BRENDA MORALES is a 49 year old male with obesity, HTN, reportedly DM II, and DREW who presented with an incarcerated ventral hernia and small bowel obstruction who now presents to the ICU s/p open repair of incarcerated hernia on a mechanical ventilator for which Dr Gerber would like to keep ventilated overnight with plan of extubating tomorrow. Additionally, anesthesia mentioned there is a possbility of aspiration given that when they intubated, they noticed gastric contents in the vicinity of the vocal cords. ICU team is serving as a medical consult for the following: ventilator weaning, management of hypertension and diabetes. Past Medical History Cardiac Medical History: Reports: Hypertension Pulmonary Medical History: Reports: Sleep Apnea Endocrine Medical History: Reports: Diabetes Mellitus Type 2 - unmedicated Past Surgical History Past Surgical History: Reports: Other - umbilical hernia repair Social History Smoking Status: Former Smoker Family History Family History: None, CAD, Hyperlipidemia, Malignancy Parental Family History Reviewed: Yes Children Family History Reviewed: Unknown Sibling(s) Family History Reviewed.: Unknown Medication/Allergy Home Medications: Aspirin [Ecotrin 81 mg EC Tablet] 81 mg PO DAILY 10/23/19 Lisinopril/Hydrochlorothiazide [Zestoretic 20-25 mg Tablet] 1 tab PO DAILY 10/23/19 Allergies/Adverse Reactions: codeine Allergy (Verified 10/23/19 14:09) Review of Systems ROS unobtainable: Due to endotracheal tube, Due to mental status Physical Exam Vital Signs: Temp Pulse Resp BP Pulse Ox 98.5 F 103 H 13 132/82 H 94 10/23/19 13:29 10/23/19 13:29 10/23/19 17:01 10/23/19 17:00 10/23/19 17:01 Intake & Output 10/22/19 10/23/19 10/24/19 06:59 06:59 06:59 Intake Total 3000 Output Total 3650 Balance -650 Weight 191 kg General appearance: PRESENT: no acute distress, morbidly obese, other - intubated/sedated Head exam: PRESENT: atraumatic, normocephalic Eye exam: PRESENT: conjunctiva pink, PERRLA Ear exam: PRESENT: normal external ear exam Mouth exam: PRESENT: moist, neck supple, tongue midline Throat exam: ABSENT: post pharyngeal erythema Neck exam: ABSENT: lymphadenopathy, tracheal deviation Respiratory exam: PRESENT: clear to auscultation ozzy, wheezes - faint wheeze left lung burrows. ABSENT: accessory muscle use, unlabored Cardiovascular exam: PRESENT: +S1, +S2, tachycardia - sinus. ABSENT: clicks, gallop, rubs, systolic murmur Pulses: PRESENT: normal radial pulses, +2 pedal pulses bilateral Vascular exam: PRESENT: other - sluggish capillary refill at 3-4 seconds GI/Abdominal exam: PRESENT: soft, other - laparotomy incision covered by dressin g and abdominal binder placed by surgeon; two abdominal ANEL drains for which Dr Gerber wants without bulb compression. Rectal exam: PRESENT: deferred Gentrourinary exam: PRESENT: erythema, indwelling catheter - placed in OR Extremities exam: PRESENT: other - appears to have BLE cellulitis. ABSENT: pedal edema Musculoskeletal exam: PRESENT: normal inspection Neurological exam: PRESENT: other - sedated/intubated Skin exam: PRESENT: erythema - to panniculus, blancheable, warm Results Laboratory Results: 10/23/19 06:19 10/23/19 06:19 10/23/19 10/23/19 10/23/19 06:19 06:19 10:25 WBC 11.3 H RBC 5.96 H Hgb 15.1 Hct 45.8 MCV 77 L MCH 25.4 L MCHC 33.1 RDW 17.9 H Plt Count 262 Seg Neutrophils % 70.2 VBG pH 7.47 H VBG pCO2 42.3 VBG HCO3 30.0 VBG Base Excess 5.6 Sodium 136.3 L Potassium 4.7 Chloride 95 L Carbon Dioxide 31 H Anion Gap 10 BUN 18 Creatinine 1.05 Est GFR ( Amer) > 60 Glucose 164 H Calcium 9.9 Total Bilirubin 0.9 AST 26 Alkaline Phosphatase 75 Total Protein 7.6 Albumin 4.0 Lipase 40.2 Urine Color Urine Appearance Urine pH Ur Specific [place] Urine Protein Urine Glucose (UA) Urine Ketones Urine Blood Urine Nitrite Ur Leukocyte Esterase Urine WBC (Auto) Urine RBC (Auto) 10/23/19 10:40 WBC RBC Hgb Hct MCV MCH MCHC RDW Plt Count Seg Neutrophils % VBG pH VBG pCO2 VBG HCO3 VBG Base Excess Sodium Potassium Chloride Carbon Dioxide Anion Gap BUN Creatinine Est GFR ( Amer) Glucose Calcium Total Bilirubin AST Alkaline Phosphatase Total Protein Albumin Lipase Urine Color [place] Urine Appearance SLIGHTLY-CLOUDY Urine pH 5.0 Ur Specific [place] 1.028 Urine Protein >=500 H Urine Glucose (UA) NEGATIVE Urine Ketones TRACE H Urine Blood NEGATIVE Urine Nitrite NEGATIVE Ur Leukocyte Esterase NEGATIVE Urine WBC (Auto) 2 Urine RBC (Auto) 7 10/23/19 06:19 Troponin I 0.012 Impressions: Chest X-Ray 10/23/19 00:00 IMPRESSION: Nasogastric tube in good positioning Abdomen/Pelvis CT 10/23/19 09:48 IMPRESSION: 1. Small-bowel obstruction with transition point within a ventral hernia. No evidence of bowel ischemia or perforation. 2. Moderate hepatic steatosis. Assessment & Plan - Diagnosis (1) Encounter for weaning from ventilator Is this a current diagnosis for this admission?: Yes Plan: CXR with RUL collapse likely due to aspiration as presumed by anesthesia. Increase Peep to 8-10 depending on plateau pressures, FiO2 50% Check ABG and adjust Ve as necessary for ventilation Possible bronchoscopy in AM if unable to open up RUL with CPT/Peep (2) Acute postoperative pain Is this a current diagnosis for this admission?: Yes Plan: prn fentanyl IVP (3) HTN (hypertension) Qualifiers: Hypertension type: essential hypertension Qualified Code(s): I10 - Essential (primary) hypertension Is this a current diagnosis for this admission?: Yes Plan: Hold home anti-HTN meds at this time as pt BP on lower side of normal with sedation. Resume when clinically appropriate. (4) Diabetes mellitus, type II Qualifiers: Diabetes mellitus termite exterminator insulin use: unspecified termite exterminator insulin use status Is this a current diagnosis for this admission?: Yes Plan: start ISS (5) Morbid obesity Is this a current diagnosis for this admission?: Yes Plan: elevate HOB 45-60 degrees to allow for better ventilation. Abdominal binder in place to protect hernia repair. (6) Incarcerated ventral hernia Is this a current diagnosis for this admission?: Yes Plan: management per Surgery (7) Small bowel obstruction Is this a current diagnosis for this admission?: Yes Plan: Management per Surgery - Time Total Critical Time (Minutes): 60 Medications reviewed and adjusted accordingly: Yes Anticipated discharge: Home Within: Other - unknown at this time Disposition: ICU for respiratory failure requiring mechanical ventilation. May need bronchoscopy in AM before attempting ventilator liberation due to complex nature of expanding right upper lobe.
[2019-10-24] MEDS ORDERED: ASPIRIN 81 MG TABLET, ENT COATED PO SCH (10:00)
[2019-10-24] MEDS ORDERED: CEFTRIAXONE 2 GM/D5W RTU 2 GM/50 ML RTUPB IV SCH (10:00)
[2019-10-24] MEDS ORDERED: HYDROCHLOROTHIAZIDE 25 MG TABLET PO SCH (10:00)
[2019-10-24] MEDS ORDERED: (PENDING PHARMACY ID) (Lisinopril/Hydrochlorothiazide [Zestoretic 20-25 Mg Tablet] 1 TAB) PO SCH (10:00)
[2019-10-24] MEDS ORDERED: MORPHINE SULFATE 10 MG/ML INJ IV ONE (10:23)
[2019-10-24] MEDS: VANCOMYCIN HCL 1,000 MG in DEXTROSE 5%-WATER 250 ML IV SCH ×2 (10:26→21:22)
[2019-10-24] MEDS: CEFTRIAXONE 2 GM/D5W RTU 2 GM/50 ML RTUPB IV SCH (12:59)
[2019-10-24] MEDS: HEPARIN SOD (PORCINE) 5,000 UNIT/ML 1 ML VIAL SUBCUT SCH ×2 (13:01→21:23)
[2019-10-24] MEDS: MORPHINE SULFATE 10 MG/ML INJ IV PRN ×3 (14:43→22:52)
--- NOTE | 2019-10-24 14:51 | EKG REPORT ---
SEVERITY:- ABNORMAL ECG - SINUS TACHYCARDIA INCOMPLETE RIGHT BUNDLE BRANCH BLOCK BORDERLINE ST DEPRESSION, LATERAL LEADS : Confirmed by: Sandra Orta MD 24-Oct-2019 14:49:41
[2019-10-25] MEDS: MORPHINE SULFATE 10 MG/ML INJ IV PRN (04:01)
[2019-10-25] MEDS: RINGERS SOLUTION,LACTATED 1,000 ML IV PRN ×3 (04:01→19:29)
[2019-10-25 04:29] LABS: HEMATOCRIT 39.1 % (37.9-51.0); HEMOGLOBIN 12.5 g/dL (13.5-17.0); MEAN CORPUSCULAR HEMOGLOBIN 25.1 pg (27.0-33.4); MEAN CORPUSCULAR VOLUME 78 fl (80-97); PLATELET COUNT 196 10^3/uL (150-450); RED BLOOD COUNT 4.99 10^6/uL (4.35-5.55); RED CELL DISTRIBUTION WIDTH 17.5 % (11.5-14.0); WHITE BLOOD COUNT 10.5 10^3/uL (4.0-10.5)
[2019-10-25 04:48] LABS: ANION GAP 7 (5-19); BLOOD UREA NITROGEN 16 mg/dL (7-20); CALCIUM 7.9 mg/dL (8.4-10.2); CARBON DIOXIDE 28 mmol/L (22-30); CHLORIDE 102 mmol/L (98-107); GLUCOSE 120 mg/dL (75-110); POTASSIUM 4.5 mmol/L (3.6-5.0)
[2019-10-25] MEDS: HEPARIN SOD (PORCINE) 5,000 UNIT/ML 1 ML VIAL SUBCUT SCH ×2 (06:17→17:07)
[2019-10-25] MEDS: ENALAPRILAT DIHYDRATE INJ/PF 1.25 MG/1 ML SDV IV SCH ×4 (06:17→17:38)
--- NOTE | 2019-10-25 08:35 | PDOC PROGRESS REPORT ---
Subjective Progress Note for:: 10/25/19 Subjective:: Postop ventral hernia repair for incarcerated ventral hernia Reason For Visit: SBO Patient awake alert this morning NG in place Physical Exam Vital Signs: Temp Pulse Resp BP Pulse Ox 99.2 F 99 23 H 148/76 H 95 10/25/19 05:55 10/25/19 00:00 10/25/19 05:00 10/25/19 05:56 10/25/19 06:00 Intake & Output 10/24/19 10/25/19 10/26/19 06:59 06:59 06:59 Intake Total 4139 6250 Output Total 4060 4680 Balance 79 1570 Weight 196.1 kg 192.5 kg General appearance: PRESENT: no acute distress, morbidly obese Head exam: PRESENT: normocephalic Eye exam: PRESENT: EOMI Ear exam: PRESENT: normal external ear exam Mouth exam: PRESENT: moist Neck exam: PRESENT: full ROM Respiratory exam: PRESENT: unlabored Cardiovascular exam: PRESENT: RRR Pulses: PRESENT: +1 pedal pulses bilateral Breast: PRESENT: Normal GI/Abdominal exam: PRESENT: soft, other - JPs with serosanguineous drainage Rectal exam: PRESENT: deferred Gentrourinary exam: PRESENT: indwelling catheter Extremities exam: PRESENT: full ROM, +1 edema Musculoskeletal exam: PRESENT: full ROM Neurological exam: PRESENT: alert, awake, oriented to person, oriented to place Psychiatric exam: PRESENT: appropriate affect Skin exam: PRESENT: dry Results Laboratory Results: 10/25/19 04:18 10/25/19 04:18 10/25/19 10/25/19 04:18 04:18 WBC 10.5 RBC 4.99 Hgb 12.5 L Hct 39.1 MCV 78 L MCH 25.1 L MCHC 32.0 RDW 17.5 H Plt Count 196 Sodium 137.0 Potassium 4.5 Chloride 102 Carbon Dioxide 28 Anion Gap 7 BUN 16 Creatinine 0.99 Est GFR ( Amer) > 60 Glucose 120 H Calcium 7.9 L 10/23/19 17:00 Blood Blood Culture (PCR) - Final 10/23/19 06:19 Troponin I 0.012 Impressions: Abdomen/Pelvis CT 10/23/19 09:48 IMPRESSION: 1. Small-bowel obstruction with transition point within a ventral hernia. No evidence of bowel ischemia or perforation. 2. Moderate hepatic steatosis. KUB X-Ray 10/23/19 22:32 IMPRESSION: 1. Intubated 2. Dense consolidation of right upper lobe, likely infiltrate/atelectasis. Cannot exclude an underlying neoplasm. Consider follow-up CT chest if this does not improve after intubation. 3. Nasogastric tube tip in the stomach. Chest X-Ray 10/24/19 00:00 IMPRESSION: 1. Improved aeration of right upper lobe collapse. 2. Low lung volumes with persistent left retrocardiac opacity. Stable support lines and tubes. Assessment & Plan - Time Time Spent with patient: 35 or more minutes - Plan Summary Plan Summary: Status post incarcerated ventral hernia status post repair postop day 2. Still no return of bowel function NG tube remains in place. Whitney catheter remains in place secondary to scrotal edema. Labs have been reviewed white count within normal limits as is H&H. Royal We will continue NG tube until return of bowel function continue Whitney catheter secondary to significant scrotal swelling. Increase mobilization hopefully the patient will be able to sit up in the chair at least dangle at bedside later today.
[2019-10-25] MEDS: INSULIN REG, HUMAN 100 UNIT/ML 3 ML VIAL (PYX) SUBCUT SCH ×4 (09:04→21:58)
[2019-10-25] MEDS: CEFTRIAXONE 2 GM/D5W RTU 2 GM/50 ML RTUPB IV SCH (12:12)
[2019-10-25] MEDS: VANCOMYCIN HCL 1,000 MG in DEXTROSE 5%-WATER 250 ML IV SCH ×2 (12:12→21:18)
--- NOTE | 2019-10-25 15:16 | PDOC CRITICAL CARE PROG REPORT ---
General Date:: 10/25/19 ICU Day:: 3 Hospital Day:: 3 Resuscitation Status: Full Code Events in the past 12 to 24 Hours:: Excessively extubated yesterday (2/). Sitting up in bed. Reports that he "feels like [he] needs to pass gas. Cultures isolating gram-positive rods (1 of 2) previously reported as gram-positive cocci. Awaiting transfer out of ICU. Review of systems relevant to events:: GI, cardiovascular, endocrine Reason for ICU Addmission:: Postoperative ventilator management - Medications: Medications reviewed and adjusted accordingly: Yes Physical Exam Vital Signs: Temp Pulse Resp BP Pulse Ox 98.8 F 104 H 20 166/91 H 98 10/25/19 12:00 10/25/19 12:00 10/25/19 12:00 10/25/19 12:00 10/25/19 12:00 Intake & Output 10/24/19 10/25/19 10/26/19 06:59 06:59 06:59 Intake Total 4139 6250 Output Total 4060 4680 970 Balance 79 1570 -970 Weight 196.1 kg 192.5 kg Weight/Height Weight 192.5 kg Height 1.75 m General appearance: PRESENT: no acute distress, well-developed, well-nourished Head exam: PRESENT: atraumatic, normocephalic Eye exam: PRESENT: conjunctiva pink, EOMI, PERRLA. ABSENT: scleral icterus Mouth exam: PRESENT: moist, tongue midline Neck exam: ABSENT: carotid bruit, JVD, lymphadenopathy, thyromegaly Respiratory exam: PRESENT: decreased breath sounds - Bases. ABSENT: rales, rhonchi, wheezes Cardiovascular exam: PRESENT: RRR. ABSENT: diastolic murmur, rubs, systolic murmur Pulses: PRESENT: normal dorsalis pedis pul GI/Abdominal exam: PRESENT: distended, hypoactive bowel sounds, soft. ABSENT: guarding, mass, rebound, tenderness Extremities exam: PRESENT: full ROM, pedal edema. ABSENT: calf tenderness, clubbing Neurological exam: PRESENT: alert, awake, oriented to person, oriented to place, oriented to time, oriented to situation, CN II-XII grossly intact. ABSENT: motor sensory deficit Laboratory/Radiographs Laboratory Results: 10/25/19 04:18 10/25/19 04:18 10/25/19 10/25/19 04:18 04:18 WBC 10.5 RBC 4.99 Hgb 12.5 L Hct 39.1 MCV 78 L MCH 25.1 L MCHC 32.0 RDW 17.5 H Plt Count 196 Sodium 137.0 Potassium 4.5 Chloride 102 Carbon Dioxide 28 Anion Gap 7 BUN 16 Creatinine 0.99 Est GFR ( Amer) > 60 Glucose 120 H Calcium 7.9 L 10/23/19 17:00 Blood Blood Culture (PCR) - Final 10/23/19 06:19 Troponin I 0.012 Impressions: Abdomen/Pelvis CT 10/23/19 09:48 IMPRESSION: 1. Small-bowel obstruction with transition point within a ventral hernia. No evidence of bowel ischemia or perforation. 2. Moderate hepatic steatosis. KUB X-Ray 10/23/19 22:32 IMPRESSION: 1. Intubated 2. Dense consolidation of right upper lobe, likely infiltrate/atelectasis. Cannot exclude an underlying neoplasm. Consider follow-up CT chest if this does not improve after intubation. 3. Nasogastric tube tip in the stomach. Chest X-Ray 10/24/19 00:00 IMPRESSION: 1. Improved aeration of right upper lobe collapse. 2. Low lung volumes with persistent left retrocardiac opacity. Stable support lines and tubes. Assessment and Plan - Diagnosis (1) Diabetes mellitus, type II Qualifiers: Diabetes mellitus penitentiary insulin use: without penitentiary use Diabetes mellitus complication status: without complication Qualified Code(s): E11.9 - Type 2 diabetes mellitus without complications Is this a current diagnosis for this admission?: Yes Plan: Sliding scale insulin (2) Encounter for weaning from ventilator Is this a current diagnosis for this admission?: Yes Plan: Resolved (3) HTN (hypertension) Qualifiers: Hypertension type: essential hypertension Qualified Code(s): I10 - Essential (primary) hypertension Is this a current diagnosis for this admission?: Yes Plan: Continue Vasotec Plan Summary: Okay to transfer to [facility] when bed available. Needs to increase activity. Critical Time Critical Time (minutes): 30 Level of Care: IMCU -: 1. The care of a critical patient is a dynamic process. This note is a franchise sales representative synopsis but static in nature. The timeframe for treatments given in order is not necessarily the actual time these treatments may have been done. 2. This patient requires critical care secondary to ongoing requirements for therapy not offered or safe outside the critical care environment. Transfer to a lower level of care will result in altered life or limb morbidity and mortality. 3. Multidisciplinary rounds completed. 4. ABCDE bundle addressed.
[2019-10-25] MEDS ORDERED: KETOROLAC TROMETHAMINE INJ/PF 30 MG/1 ML SDV ONE (17:34)
[2019-10-25] MEDS ORDERED: KETOROLAC TROMETHAMINE INJ/PF 30 MG/1 ML SDV IV ONE (18:10)
[2019-10-26] MEDS: ENALAPRILAT DIHYDRATE INJ/PF 1.25 MG/1 ML SDV IV SCH ×3 (00:45→12:04)
[2019-10-26] MEDS: RINGERS SOLUTION,LACTATED 1,000 ML IV PRN ×2 (00:46→06:11)
[2019-10-26 04:22] LABS: HEMATOCRIT 37.9 % (37.9-51.0); HEMOGLOBIN 12.2 g/dL (13.5-17.0); MEAN CORPUSCULAR HGB CONC 32.1 g/dL (32.0-36.0); MEAN CORPUSCULAR VOLUME 78 fl (80-97); PLATELET COUNT 227 10^3/uL (150-450); RED BLOOD COUNT 4.87 10^6/uL (4.35-5.55); RED CELL DISTRIBUTION WIDTH 17.6 % (11.5-14.0); WHITE BLOOD COUNT 10.1 10^3/uL (4.0-10.5)
[2019-10-26 04:42] LABS: ANION GAP 8 (5-19); BLOOD UREA NITROGEN 16 mg/dL (7-20); CALCIUM 8.3 mg/dL (8.4-10.2); CARBON DIOXIDE 26 mmol/L (22-30); CHLORIDE 102 mmol/L (98-107); GLUCOSE 109 mg/dL (75-110); POTASSIUM 4.5 mmol/L (3.6-5.0)
[2019-10-26] MEDS ORDERED: RINGERS SOLUTION,LACTATED 1,000 ML IV PRN (08:28)
--- NOTE | 2019-10-26 08:29 | PDOC PROGRESS REPORT ---
Subjective Progress Note for:: 10/26/19 Subjective:: The patient has no complaints of, he denies flatus or bowel movements, minimal pain Reason For Visit: SBO Physical Exam Vital Signs: Temp Pulse Resp BP Pulse Ox 98.2 F 89 23 H 164/90 H 95 10/26/19 08:00 10/26/19 08:00 10/26/19 08:00 10/26/19 08:00 10/26/19 08:00 Intake & Output 10/25/19 10/26/19 10/27/19 06:59 06:59 06:59 Intake Total 6250 4420 Output Total 4680 2510 315 Balance 1570 1910 -315 Weight 192.5 kg 194.4 kg General appearance: PRESENT: no acute distress, obese Respiratory exam: PRESENT: clear to auscultation ozzy Cardiovascular exam: PRESENT: RRR GI/Abdominal exam: PRESENT: hypoactive bowel sounds, soft, other - Midline incision clean, intact, dry; presence of right or left lower quadrant abdominal drain filled with serous fluid Results Laboratory Results: 10/26/19 04:02 10/26/19 04:02 10/26/19 10/26/19 04:02 04:02 WBC 10.1 RBC 4.87 Hgb 12.2 L Hct 37.9 MCV 78 L MCH 25.0 L MCHC 32.1 RDW 17.6 H Plt Count 227 Sodium 136.2 L Potassium 4.5 Chloride 102 Carbon Dioxide 26 Anion Gap 8 BUN 16 Creatinine 0.82 Est GFR ( Amer) > 60 Glucose 109 Calcium 8.3 L 10/23/19 17:00 Blood Blood Culture (PCR) - Final 10/23/19 06:19 Troponin I 0.012 Impressions: Abdomen/Pelvis CT 10/23/19 09:48 IMPRESSION: 1. Small-bowel obstruction with transition point within a ventral hernia. No evidence of bowel ischemia or perforation. 2. Moderate hepatic steatosis. KUB X-Ray 10/23/19 22:32 IMPRESSION: 1. Intubated 2. Dense consolidation of right upper lobe, likely infiltrate/atelectasis. Cannot exclude an underlying neoplasm. Consider follow-up CT chest if this does not improve after intubation. 3. Nasogastric tube tip in the stomach. Assessment & Plan - Diagnosis (1) Morbid obesity Is this a current diagnosis for this admission?: Yes (2) Incarcerated ventral hernia Is this a current diagnosis for this admission?: Yes (3) Small bowel obstruction Is this a current diagnosis for this admission?: Yes - Time Time Spent with patient: 25-34 minutes - Plan Summary Plan Summary: Assessment: Postoperative day #2 following laparotomy, open repair of ventral hernia with absorbable mesh and bilateral component separation Vital signs stable, patient afebrile Nasogastric tube output 20 mL for the past 24 hours Intra-abdominal drain output 175 mL and 70 mL, respectively for drain #1 and #2 Blood work within normal limits Good urine output Plan: Clamp nasogastric tube for 4 hours, if minimal residual less than 150 mL, remove NG tube If nasogastric tube is removed, patient can be started on a clear liquid diet Decrease IV fluids to 125 mL/h Stop narcotics (morphine) Start patient on Ofirmev and Toradol every 6 Patient can be transferred to the floor anytime today if bed is available
--- NOTE | 2019-10-26 08:54 | RADIOLOGY REPORT (SQ) ---
EXAM DESCRIPTION: CHEST SINGLE VIEW COMPLETED DATE/TIME: 10/26/2019 7:25 am REASON FOR STUDY: f/u interval improvement in R lung infiltrate? COMPARISON: 10/24/2019 NUMBER OF VIEWS: One view. TECHNIQUE: Single frontal radiographic image of the chest acquired. LIMITATIONS: None. FINDINGS: LUNGS AND PLEURA: Improved aeration in the right lung. No pneumothorax. MEDIASTINUM AND HEART: Stable heart size and mediastinal structures. SUPPORT DEVICES: Appropriate position of nasogastric tube. Interval removal of endotracheal tube. BONY STRUCTURES: No acute findings. HARDWARE: None. OTHER: No other significant finding. IMPRESSION: Interval improvement status postextubation. Reading location - IP/workstation name: [email or web address]
[2019-10-26] MEDS: INSULIN REG, HUMAN 100 UNIT/ML 3 ML VIAL (PYX) SUBCUT SCH ×4 (09:29→23:11)
[2019-10-26] MEDS: KETOROLAC TROMETHAMINE INJ/PF 30 MG/1 ML SDV IV SCH ×4 (09:30→23:40)
[2019-10-26] MEDS: CEFTRIAXONE 2 GM/D5W RTU 2 GM/50 ML RTUPB IV SCH (12:04)
--- NOTE | 2019-10-26 12:40 | PDOC CRITICAL CARE PROG REPORT ---
General Date:: 10/26/19 ICU Day:: 4 Hospital Day:: 4 Resuscitation Status: Full Code Events in the past 12 to 24 Hours:: Successfully extubated 2/. Out of bed to chair. Has had multiple bouts of flatus. Reports feeling much better. Awaiting transfer out of ICU. Review of systems relevant to events:: GI, cardiovascular, endocrine Reason for ICU Addmission:: Postoperative ventilator management Physical Exam Vital Signs: Temp Pulse Resp BP Pulse Ox 98.2 F 89 23 H 164/90 H 95 10/26/19 08:00 10/26/19 08:00 10/26/19 08:00 10/26/19 08:00 10/26/19 08:00 Intake & Output 10/25/19 10/26/19 10/27/19 06:59 06:59 06:59 Intake Total 6250 4420 Output Total 4680 2510 315 Balance 1570 1910 -315 Weight 192.5 kg 194.4 kg Weight/Height Weight 194.4 kg Height 1.75 m General appearance: PRESENT: no acute distress, well-developed, well-nourished Head exam: PRESENT: atraumatic, normocephalic Eye exam: PRESENT: conjunctiva pink, EOMI, PERRLA. ABSENT: scleral icterus Mouth exam: PRESENT: moist, tongue midline Respiratory exam: PRESENT: clear to auscultation ozzy. ABSENT: rales, rhonchi, wheezes Cardiovascular exam: PRESENT: RRR. ABSENT: diastolic murmur, rubs, systolic murmur GI/Abdominal exam: PRESENT: normal bowel sounds, tenderness. ABSENT: mass, rebound Extremities exam: PRESENT: full ROM. ABSENT: calf tenderness, clubbing, pedal edema Musculoskeletal exam: PRESENT: normal inspection Laboratory/Radiographs Laboratory Results: 10/26/19 04:02 10/26/19 04:02 10/26/19 10/26/19 04:02 04:02 WBC 10.1 RBC 4.87 Hgb 12.2 L Hct 37.9 MCV 78 L MCH 25.0 L MCHC 32.1 RDW 17.6 H Plt Count 227 Sodium 136.2 L Potassium 4.5 Chloride 102 Carbon Dioxide 26 Anion Gap 8 BUN 16 Creatinine 0.82 Est GFR ( Amer) > 60 Glucose 109 Calcium 8.3 L 10/23/19 17:00 Blood Blood Culture (PCR) - Final 10/23/19 06:19 Troponin I 0.012 Impressions: Abdomen/Pelvis CT 10/23/19 09:48 IMPRESSION: 1. Small-bowel obstruction with transition point within a ventral hernia. No evidence of bowel ischemia or perforation. 2. Moderate hepatic steatosis. KUB X-Ray 10/23/19 22:32 IMPRESSION: 1. Intubated 2. Dense consolidation of right upper lobe, likely infiltrate/atelectasis. Cannot exclude an underlying neoplasm. Consider follow-up CT chest if this does not improve after intubation. 3. Nasogastric tube tip in the stomach. Chest X-Ray 10/26/19 00:00 IMPRESSION: Interval improvement status postextubation. Assessment and Plan - Diagnosis (1) Diabetes mellitus, type II Qualifiers: Diabetes mellitus fdc insulin use: without salvage determiner use Diabetes mellitus complication status: without complication Qualified Code(s): E11.9 - Type 2 diabetes mellitus without complications Is this a current diagnosis for this admission?: Yes Plan: Sliding scale insulin (2) Encounter for weaning from ventilator Is this a current diagnosis for this admission?: Yes Plan: Resolved (3) HTN (hypertension) Qualifiers: Hypertension type: essential hypertension Qualified Code(s): I10 - Essential (primary) hypertension Is this a current diagnosis for this admission?: Yes Plan: Continue Vasotec Plan Summary: Okay to transfer to [facility] when bed available. Needs to increase activity. Critical Time Critical Time (minutes): 0 Level of Care: ICU -: 1. The care of a critical patient is a dynamic process. This note is a parts counter representative synopsis but static in nature. The timeframe for treatments given in order is not necessarily the actual time these treatments may have been done. 2. This patient requires critical care secondary to ongoing requirements for therapy not offered or safe outside the critical care environment. Transfer to a lower level of care will result in altered life or limb morbidity and mortality. 3. Multidisciplinary rounds completed. 4. ABCDE bundle addressed.
[2019-10-26] MEDS ORDERED: VANCOMYCIN HCL 1,250 MG in DEXTROSE 5%-WATER 250 ML IV SCH (14:00)
[2019-10-26] MEDS: HEPARIN SOD (PORCINE) 5,000 UNIT/ML 1 ML VIAL SUBCUT SCH ×2 (14:32→22:30)
--- NOTE | 2019-10-26 17:24 | Progress Note ---
Provider Note Provider Note: BC x 1 yielding Corynebacterium. This is most likely contaminant. Subsequent blood culture has been negative. Patient is on ceftriaxone. No further interventions at this time
[2019-10-26] MEDS ORDERED: VANCOMYCIN HCL INJ 500 MG VIAL ONE (18:41)
[2019-10-26] MEDS ORDERED: VANCOMYCIN HCL INJ 1000 MG VIAL ONE (18:41)
[2019-10-26] MEDS: VANCOMYCIN HCL 1,250 MG in DEXTROSE 5%-WATER 250 ML IV SCH (23:47)
[2019-10-27] MEDS: VANCOMYCIN HCL 1,250 MG in DEXTROSE 5%-WATER 250 ML IV SCH ×3 (04:03→21:02)
[2019-10-27] MEDS: HEPARIN SOD (PORCINE) 5,000 UNIT/ML 1 ML VIAL SUBCUT SCH ×3 (05:57→21:02)
[2019-10-27] MEDS: KETOROLAC TROMETHAMINE INJ/PF 30 MG/1 ML SDV IV SCH (05:57)
[2019-10-27 06:06] LABS: ANION GAP 6 (5-19); BLOOD UREA NITROGEN 19 mg/dL (7-20); CALCIUM 8.5 mg/dL (8.4-10.2); CARBON DIOXIDE 26 mmol/L (22-30); CHLORIDE 107 mmol/L (98-107); GLUCOSE 116 mg/dL (75-110); POTASSIUM 5.4 mmol/L (3.6-5.0)
[2019-10-27 08:26] LABS: HEMOGLOBIN 12.1 g/dL (13.5-17.0); MEAN CORPUSCULAR HEMOGLOBIN 24.8 pg (27.0-33.4); MEAN CORPUSCULAR HGB CONC 31.9 g/dL (32.0-36.0); MEAN CORPUSCULAR VOLUME 78 fl (80-97); PLATELET COUNT 259 10^3/uL (150-450); RED BLOOD COUNT 4.88 10^6/uL (4.35-5.55); RED CELL DISTRIBUTION WIDTH 17.2 % (11.5-14.0); WHITE BLOOD COUNT 8.5 10^3/uL (4.0-10.5)
[2019-10-27] MEDS ORDERED: ACETAMINOPHEN 325 MG TABLET PO PRN (08:50)
--- NOTE | 2019-10-27 09:02 | PDOC PROGRESS REPORT ---
Subjective Progress Note for:: 10/27/19 Subjective:: Patient comfortable, no complaints, flatus present, the patient has had one bowel movement today Reason For Visit: SBO Physical Exam Vital Signs: Temp Pulse Resp BP Pulse Ox 98.4 F 75 13 159/91 H 98 10/27/19 00:19 10/27/19 07:00 10/27/19 03:40 10/27/19 00:19 10/27/19 03:40 Intake & Output 10/26/19 10/27/19 10/28/19 06:59 06:59 06:59 Intake Total 4420 1395 250 Output Total 2510 1705 Balance 1910 -310 250 Weight 194.4 kg General appearance: PRESENT: no acute distress, obese - Morbidly obese Respiratory exam: PRESENT: clear to auscultation ozzy Cardiovascular exam: PRESENT: RRR GI/Abdominal exam: PRESENT: normal bowel sounds, soft, other - Large for obesity, midline incision clean, dry, and intact; right and left lower abdominal Junior drains filled with serosanguineous fluid Results Laboratory Results: 10/27/19 07:20 10/27/19 05:21 10/27/19 10/27/19 10/27/19 05:21 05:21 07:20 WBC Cancelled 8.5 RBC Cancelled 4.88 Hgb Cancelled 12.1 L Hct Cancelled 38.0 MCV Cancelled 78 L MCH Cancelled 24.8 L MCHC Cancelled 31.9 L RDW Cancelled 17.2 H Plt Count Cancelled 259 Sodium 139.1 Potassium 5.4 H Chloride 107 Carbon Dioxide 26 Anion Gap 6 BUN 19 Creatinine 0.82 Est GFR ( Amer) > 60 Glucose 116 H Calcium 8.5 10/23/19 17:00 Blood Blood Culture (PCR) - Final 10/23/19 06:19 Troponin I 0.012 Impressions: Abdomen/Pelvis CT 10/23/19 09:48 IMPRESSION: 1. Small-bowel obstruction with transition point within a ventral hernia. No evidence of bowel ischemia or perforation. 2. Moderate hepatic steatosis. KUB X-Ray 10/23/19 22:32 IMPRESSION: 1. Intubated 2. Dense consolidation of right upper lobe, likely infiltrate/atelectasis. Cannot exclude an underlying neoplasm. Consider follow-up CT chest if this does not improve after intubation. 3. Nasogastric tube tip in the stomach. Chest X-Ray 10/26/19 00:00 IMPRESSION: Interval improvement status postextubation. Assessment & Plan - Diagnosis (1) Morbid obesity Is this a current diagnosis for this admission?: Yes (2) Incarcerated ventral hernia Is this a current diagnosis for this admission?: Yes (3) Small bowel obstruction Is this a current diagnosis for this admission?: Yes - Time Time Spent with patient: 35 or more minutes - Plan Summary Plan Summary: Assessment: POD#4 after laparotomy, repair of incarcerated ventral hernia w/ absorbable mesh and component separation VSS, AF Bowel function present Tolerating po well Plan; HL IVF Advance to full liquid diet; if tolerated diabetic diet tonight discharge to home in 1-2 days when cleared by hospitalist Chelo khan at midnight
[2019-10-27] MEDS: INSULIN REG, HUMAN 100 UNIT/ML 3 ML VIAL (PYX) SUBCUT SCH ×4 (09:42→21:56)
[2019-10-27] MEDS: LISINOPRIL 10 MG TABLET PO SCH (09:44)
[2019-10-27] MEDS: CEFTRIAXONE 2 GM/D5W RTU 2 GM/50 ML RTUPB IV SCH (13:48)
--- NOTE | 2019-10-27 16:39 | PDOC PROGRESS REPORT ---
Subjective Progress Note for:: 10/27/19 Subjective:: PatientPostop day #4 status post laparotomy, repair of incarcerated ventral hernia. She has been advanced to full liquid diet. And then to diabetic diet as tolerated Reason For Visit: SBO Physical Exam Vital Signs: Temp Pulse Resp BP Pulse Ox 98.1 F 77 18 157/84 H 94 10/27/19 07:50 10/27/19 07:50 10/27/19 07:50 10/27/19 07:50 10/27/19 07:50 Intake & Output 10/26/19 10/27/19 10/28/19 06:59 06:59 06:59 Intake Total 4420 1545 250 Output Total 2510 1955 Balance 1910 -410 250 Weight 194.4 kg 190.3 kg General appearance: PRESENT: no acute distress, morbidly obese Head exam: PRESENT: atraumatic Ear exam: ABSENT: bleeding Respiratory exam: PRESENT: clear to auscultation ozzy. ABSENT: rhonchi Cardiovascular exam: PRESENT: RRR, +S1, +S2 GI/Abdominal exam: PRESENT: other - Dressing intact. Abdominal binder in place. Vague tenderness around incision site Rectal exam: PRESENT: deferred Extremities exam: ABSENT: calf tenderness, tenderness Psychiatric exam: PRESENT: appropriate affect Results Laboratory Results: 10/27/19 07:20 10/27/19 05:21 10/27/19 10/27/19 10/27/19 05:21 05:21 07:20 WBC Cancelled 8.5 RBC Cancelled 4.88 Hgb Cancelled 12.1 L Hct Cancelled 38.0 MCV Cancelled 78 L MCH Cancelled 24.8 L MCHC Cancelled 31.9 L RDW Cancelled 17.2 H Plt Count Cancelled 259 Sodium 139.1 Potassium 5.4 H Chloride 107 Carbon Dioxide 26 Anion Gap 6 BUN 19 Creatinine 0.82 Est GFR ( Amer) > 60 Glucose 116 H Calcium 8.5 10/23/19 17:00 Blood Blood Culture (PCR) - Final 10/23/19 06:19 Troponin I 0.012 Impressions: Abdomen/Pelvis CT 10/23/19 09:48 IMPRESSION: 1. Small-bowel obstruction with transition point within a ventral hernia. No evidence of bowel ischemia or perforation. 2. Moderate hepatic steatosis. KUB X-Ray 10/23/19 22:32 IMPRESSION: 1. Intubated 2. Dense consolidation of right upper lobe, likely infiltrate/atelectasis. Cannot exclude an underlying neoplasm. Consider follow-up CT chest if this does not improve after intubation. 3. Nasogastric tube tip in the stomach. Chest X-Ray 10/26/19 00:00 IMPRESSION: Interval improvement status postextubation. Assessment and Plan - Diagnosis (1) Diabetes mellitus, type II Qualifiers: Diabetes mellitus long goods drier insulin use: without [facility] use Diabetes mellitus complication status: without complication Qualified Code(s): E11.9 - Type 2 diabetes mellitus without complications Is this a current diagnosis for this admission?: Yes Plan: Sliding scale insulin (2) HTN (hypertension) Qualifiers: Hypertension type: essential hypertension Qualified Code(s): I10 - Essential (primary) hypertension Is this a current diagnosis for this admission?: Yes Plan: Continue Vasotec (3) Incarcerated ventral hernia Is this a current diagnosis for this admission?: Yes Plan: As per surgery (4) Morbid obesity Is this a current diagnosis for this admission?: Yes (5) Bacteremia Is this a current diagnosis for this admission?: Yes Plan: Blood cultures yielding Corynebacterium and gram-positive cocci in clusters. Patient has been on ceftriaxone and vancomycin day #4. We will continue current management and de-escalate as appropriate prior to discharge - Time Medications reviewed and adjusted accordingly: Yes Anticipated discharge: Home
[2019-10-27 21:31] LABS: VANCOMYCIN,TROUGH 10.7 ug/mL (5.0-20.0)
[2019-10-28] MEDS: VANCOMYCIN HCL 1,250 MG in DEXTROSE 5%-WATER 250 ML IV SCH ×2 (04:51→14:10)
[2019-10-28] MEDS: HEPARIN SOD (PORCINE) 5,000 UNIT/ML 1 ML VIAL SUBCUT SCH ×3 (05:00→22:51)
[2019-10-28 05:07] LABS: HEMATOCRIT 39.5 % (37.9-51.0); HEMOGLOBIN 12.8 g/dL (13.5-17.0); MEAN CORPUSCULAR HEMOGLOBIN 24.8 pg (27.0-33.4); MEAN CORPUSCULAR HGB CONC 32.3 g/dL (32.0-36.0); MEAN CORPUSCULAR VOLUME 77 fl (80-97); PLATELET COUNT 295 10^3/uL (150-450); RED BLOOD COUNT 5.15 10^6/uL (4.35-5.55); RED CELL DISTRIBUTION WIDTH 16.9 % (11.5-14.0); WHITE BLOOD COUNT 9.7 10^3/uL (4.0-10.5)
[2019-10-28 05:31] LABS: ANION GAP 6 (5-19); BLOOD UREA NITROGEN 16 mg/dL (7-20); CALCIUM 8.6 mg/dL (8.4-10.2); CARBON DIOXIDE 27 mmol/L (22-30); CHLORIDE 104 mmol/L (98-107); GLUCOSE 119 mg/dL (75-110); POTASSIUM 4.5 mmol/L (3.6-5.0)
[2019-10-28] MEDS: INSULIN REG, HUMAN 100 UNIT/ML 3 ML VIAL (PYX) SUBCUT SCH ×4 (08:12→22:52)
[2019-10-28] MEDS ORDERED: DEXTROSE 40% GEL 15 GM TUBE X 2 PO PRN (09:00)
[2019-10-28] MEDS ORDERED: DEXTROSE 50%-WATER SYRINGE 12.5 GM/25 ML DOSE IV PRN (09:00)
[2019-10-28] MEDS ORDERED: DEXTROSE 40% GEL 15 GM TUBE PO PRN (09:00)
[2019-10-28] MEDS ORDERED: DEXTROSE 50%-WATER SYRINGE 25 GM/50 ML DOSE IV PRN (09:00)
[2019-10-28] MEDS: LISINOPRIL 10 MG TABLET PO SCH (09:32)
--- NOTE | 2019-10-28 11:59 | PDOC PROGRESS REPORT ---
Subjective Progress Note for:: 10/28/19 Subjective:: feels ok, min pain gómez diet Reason For Visit: SBO Physical Exam Vital Signs: Temp Pulse Resp BP Pulse Ox 98.3 F 74 16 140/72 H 94 10/28/19 07:21 10/28/19 07:21 10/28/19 07:21 10/28/19 07:21 10/28/19 07:21 Intake & Output 10/27/19 10/28/19 10/29/19 06:59 06:59 06:59 Intake Total 1545 2926 50 Output Total 1955 2480 Balance -410 446 50 Weight 190.3 kg 190.3 kg General appearance: PRESENT: no acute distress, morbidly obese Eye exam: PRESENT: EOMI Ear exam: PRESENT: normal external ear exam Mouth exam: PRESENT: moist, neck supple Neck exam: PRESENT: full ROM Respiratory exam: PRESENT: clear to auscultation ozzy Cardiovascular exam: PRESENT: RRR Pulses: PRESENT: normal radial pulses, normal femoral pulses Breast: PRESENT: Normal GI/Abdominal exam: PRESENT: soft, other - minline incision dry iwth retention sutures in place anjali's with serous fluid rt anjali min op left 100cc yesterday Rectal exam: PRESENT: deferred Extremities exam: PRESENT: full ROM Musculoskeletal exam: PRESENT: full ROM Neurological exam: PRESENT: alert, awake, oriented to person, oriented to place Psychiatric exam: PRESENT: appropriate affect Skin exam: PRESENT: dry Results Laboratory Results: 10/28/19 04:45 10/28/19 04:45 10/27/19 10/28/19 10/28/19 20:38 04:45 04:45 WBC 9.7 RBC 5.15 Hgb 12.8 L Hct 39.5 MCV 77 L MCH 24.8 L MCHC 32.3 RDW 16.9 H Plt Count 295 Sodium 136.6 L Potassium 4.5 Chloride 104 Carbon Dioxide 27 Anion Gap 6 BUN 16 Creatinine 0.73 0.81 Est GFR ( Amer) > 60 > 60 Glucose 119 H Calcium 8.6 10/23/19 17:00 Blood Blood Culture (PCR) - Final 10/23/19 06:19 Troponin I 0.012 Impressions: Abdomen/Pelvis CT 10/23/19 09:48 IMPRESSION: 1. Small-bowel obstruction with transition point within a ventral hernia. No evidence of bowel ischemia or perforation. 2. Moderate hepatic steatosis. KUB X-Ray 10/23/19 22:32 IMPRESSION: 1. Intubated 2. Dense consolidation of right upper lobe, likely infiltrate/atelectasis. Cannot exclude an underlying neoplasm. Consider follow-up CT chest if this does not improve after intubation. 3. Nasogastric tube tip in the stomach. Chest X-Ray 10/26/19 00:00 IMPRESSION: Interval improvement status postextubation. Assessment & Plan - Time Time Spent with patient: 35 or more minutes - Plan Summary Plan Summary: s/p repair of incarcerated ventral hernia now doing well gómez diet I have removed rt sided anjali left still has about 100cc/24hr output pt is stable from surgery standpt for discharge home today if he is discharged, needs a f/u appoint in surgery clinic in 7 days for removal of his anjali if he remains in hosp surgery will see him tomorrow for poss drain removal.
[2019-10-28] MEDS ORDERED: LISINOPRIL 10 MG TABLET PO ONE (13:11)
[2019-10-28] MEDS: CEFTRIAXONE 2 GM/D5W RTU 2 GM/50 ML RTUPB IV SCH (14:25)
[2019-10-28 14:29] LABS: CHOLESTEROL 159.08 mg/dL (0-200); TRIGLYCERIDES 239 mg/dL (<150)
[2019-10-28 14:41] LABS: DIRECT LDL 102 mg/dL (<100)
[2019-10-28 14:44] LABS: VLDL CHOLESTEROL 47.8 mg/dL (10-31)
[2019-10-28 20:27] LABS: FREE T3 1.66 pg/mL (2.77-5.27); FREE T4 (FREE THYROXINE) 1.39 ng/dL (0.78-2.19)
[2019-10-28] MEDS ORDERED: ATORVASTATIN CALCIUM 40 MG TABLET PO SCH (22:00)
[2019-10-29] MEDS: HEPARIN SOD (PORCINE) 5,000 UNIT/ML 1 ML VIAL SUBCUT SCH ×2 (05:36→13:35)
[2019-10-29] MEDS: INSULIN REG, HUMAN 100 UNIT/ML 3 ML VIAL (PYX) SUBCUT SCH ×2 (08:10→11:20)
[2019-10-29] MEDS ORDERED: LISINOPRIL 10 MG TABLET PO SCH (10:00)
--- NOTE | 2019-10-29 11:19 | PDOC PROGRESS REPORT ---
Subjective Progress Note for:: 10/29/19 Reason For Visit: SBO Physical Exam Vital Signs: Temp Pulse Resp BP Pulse Ox 98.6 F 69 18 137/62 H 95 10/29/19 07:35 10/29/19 07:35 10/29/19 07:35 10/29/19 07:35 10/29/19 07:35 Intake & Output 10/28/19 10/29/19 10/30/19 06:59 06:59 06:59 Intake Total 2926 2420 Output Total 2480 790 60 Balance 446 1630 -60 Weight 190.3 kg 190.3 kg Results Laboratory Results: 10/28/19 04:45 10/28/19 04:45 10/28/19 10/28/19 10/28/19 04:45 04:45 04:55 Triglycerides 239 H Cholesterol 159.08 LDL Cholesterol Direct 102 H VLDL Cholesterol 47.8 H HDL Cholesterol 28 L TSH 0.21 L Free T4 1.39 Free T3 pg/mL 1.66 L 10/23/19 17:04 Blood Blood Culture - Final NO GROWTH IN 5 DAYS 10/23/19 17:00 Blood Blood Culture (PCR) - Final 10/23/19 17:00 Blood Blood Culture - Final Corynebacterium Species 10/23/19 06:19 Troponin I 0.012 Impressions: Abdomen/Pelvis CT 10/23/19 09:48 IMPRESSION: 1. Small-bowel obstruction with transition point within a ventral hernia. No evidence of bowel ischemia or perforation. 2. Moderate hepatic steatosis. KUB X-Ray 10/23/19 22:32 IMPRESSION: 1. Intubated 2. Dense consolidation of right upper lobe, likely infiltrate/atelectasis. Cannot exclude an underlying neoplasm. Consider follow-up CT chest if this does not improve after intubation. 3. Nasogastric tube tip in the stomach. Chest X-Ray 10/26/19 00:00 IMPRESSION: Interval improvement status postextubation. Assessment & Plan - Diagnosis (1) Incarcerated ventral hernia Is this a current diagnosis for this admission?: Yes (2) Small bowel obstruction Is this a current diagnosis for this admission?: Yes - Time Time Spent with patient: Less than 15 minutes - Plan Summary Plan Summary: This is a 49-year-old male status post ex lap for an incarcerated ventral hernia with small bowel obstruction, requiring hernia repair. He has a ANEL drain in the subcutaneous tissue, which is still moderately productive. He had more than 60 cc over 24 hours. I have recommended leaving the ANEL drain in place for now. He has retention sutures and jasmin in place. I would leave these in place for approximately 14 days after surgery. I will have him follow-up next week with me in the office to remove his ANEL, jasmin, and possibly retention sutures. He is stable from a surgical standpoint for discharge. His activity level should be nonstrenuous, with no lifting more than 10 pounds. He may eat a regular diet, as he tolerates. Please renotify surgery with any questions or concerns.
[2019-10-29] MEDS: CEFTRIAXONE 2 GM/D5W RTU 2 GM/50 ML RTUPB IV SCH (13:22)
[2019-10-29] MEDS ORDERED: INFLUENZA QUAD (6MOS+) 2019-20 VAC 0.5 ML SYR IM ONE (13:38)
[2019-10-29 14:11] VITALS: BP 146/74
--- NOTE | 2019-10-31 16:20 | PDOC DISCHARGE SUMMARY ---
Impression - Admit/DC Date/PCP Admission Date/Primary Care Provider: 10/23/19 13:02 Discharge Date: 10/29/19 - Discharge Diagnosis (1) Incarcerated ventral hernia Is this a current diagnosis for this admission?: Yes (2) Diabetes mellitus, type II Is this a current diagnosis for this admission?: Yes (3) HTN (hypertension) Is this a current diagnosis for this admission?: Yes (4) Morbid obesity Is this a current diagnosis for this admission?: Yes (5) Bacteremia Is this a current diagnosis for this admission?: Yes (6) Hyperlipidemia Is this a current diagnosis for this admission?: Yes - Additional Information Resuscitation Status: Full Code Discharge Diet: As Tolerated Discharge Activity: Activity As Tolerated, No Lifting Over 10 Pounds, No Lifting/Push/Pulling, No tub bath, Walk Frequently Referrals: [facility] [Provider Group] - 11/07/19 8:45 am Home Medications: Aspirin [Ecotrin 81 mg EC Tablet] 81 mg PO DAILY 10/23/19 Lisinopril/Hydrochlorothiazide [Zestoretic 20-25 mg Tablet] 1 tab PO DAILY 10/23/19 History of Present Illiness History of Present Illness: BRENDA MORALES is a 49 year old male with a history of hypertension and morbid obesity who has had a ventral hernia for some time and said he began to have some increased abdominal discomfort along with some nausea and vomiting this been getting progressively worse over the past few days. He is not been having any fevers. He is not able to keep any food down. He said he has not taken his blood pressure medicine in a couple of days because every time he tries to take something by mouth he just vomits it back up. He had a CT scan done in the ER that shows a small bowel obstruction. Surgery was consulted and because of his medical issues requested that the hospitalist service admit. Hospital Course Hospital Course: (1) Incarcerated ventral hernia Day 8 status post incarcerated ventral hernia repair by surgery. Tolerating diet. Rt sided ANEL drain removed. Left ANEL is still in place. Patient to follow-up with Dr. Vidal and surgery clinic within 1 week. (2) Diabetes mellitus, type II Controlled. Hemoglobin A1c 6.5. Not on antidiabetics. Was a started sliding scale insulin. Diabetic diet. Diabetic education. Patient did not want to be started on any antidiabetic stating that he will try to control it with diet and exercise. (3) HTN (hypertension) Optimized. Was started on lisinopril 40 mg p.o. daily and HCTZ 25 mg p.o. daily. Advised to follow-up with PCP. (4) Morbid obesity BMI 62.0. Low TSH, normal T3-T4. Diet and lifestyle patient recommended. Likely a candidate for bariatric intervention. (5) Bacteremia WBC WNL. Afebrile. 10/23/2019. Corynebacterium species. Received 5 days of empiric IV vancomycin and cefepime. (6) Hyperlipidemia ASCVD score of 12.9%. Started on high intensity statins. Outpatient PCP follow-up for LFT monitoring. Physical Exam Vital Signs: Temp Pulse Resp BP Pulse Ox 98.6 F 69 18 146/74 H 95 10/29/19 14:01 10/29/19 14:01 10/29/19 14:01 10/29/19 14:01 10/29/19 14:01 Intake & Output 10/30/19 10/31/19 11/01/19 06:59 06:59 06:59 Intake Total 480 Output Total 120 Balance 360 General appearance: PRESENT: morbidly obese Head exam: PRESENT: atraumatic, normocephalic Respiratory exam: PRESENT: clear to auscultation ozzy. ABSENT: rales, rhonchi, wheezes Cardiovascular exam: PRESENT: RRR. ABSENT: diastolic murmur, rubs, systolic murmur GI/Abdominal exam: PRESENT: normal bowel sounds, soft, other - Status post ventral hernia repair. J-tube in place on the left side, patent. No sign of active infection or discharge.. ABSENT: distended, guarding, mass, organolmegaly, rebound, tenderness Neurological exam: PRESENT: alert, awake, oriented to person, oriented to place, oriented to time, oriented to situation, CN II-XII grossly intact. ABSENT: motor sensory deficit Results Laboratory Results: WBC 9.7 10^3/uL (4.0-10.5) 10/28/19 04:45 RBC 5.15 10^6/uL (4.35-5.55) 10/28/19 04:45 Hgb 12.8 g/dL (13.5-17.0) L 10/28/19 04:45 Hct 39.5 % (37.9-51.0) 10/28/19 04:45 MCV 77 fl (80-97) L 10/28/19 04:45 MCH 24.8 pg (27.0-33.4) L 10/28/19 04:45 MCHC 32.3 g/dL (32.0-36.0) 10/28/19 04:45 RDW 16.9 % (11.5-14.0) H 10/28/19 04:45 Plt Count 295 10^3/uL (150-450) 10/28/19 04:45 Lymph % (Auto) 20.2 % (13-45) 10/23/19 06:19 [place] % (Auto) 8.2 % (3-13) 10/23/19 06:19 Eos % (Auto) 1.0 % (0-6) 10/23/19 06:19 Baso % (Auto) 0.4 % (0-2) 10/23/19 06:19 Absolute Neuts (auto) 7.9 10^3/uL (1.7-8.2) 10/23/19 06:19 Absolute Lymphs (auto) 2.3 10^3/uL (0.5-4.7) 10/23/19 06:19 Absolute Monos (auto) 0.9 10^3/uL (0.1-1.4) 10/23/19 06:19 Absolute Eos (auto) 0.1 10^3/uL (0.0-0.6) 10/23/19 06:19 Absolute Basos (auto) 0.0 10^3/uL (0.0-0.2) 10/23/19 06:19 Seg Neutrophils % 70.2 % (42-78) 10/23/19 06:19 Platelet Estimate Cancelled 10/27/19 05:21 Carbonic Acid 1.54 mmol/L (1.05-1.35) H 10/24/19 03:10 HCO3/H2CO3 Ratio 19:1 10/24/19 03:10 ABG pH 7.38 (7.35-7.45) 10/24/19 03:10 ABG pCO2 51.2 mmHg (35-45) H 10/24/19 03:10 ABG pO2 80.4 mmHg (80-100) 10/24/19 03:10 ABG HCO3 29.5 mmol/L (20-24) H 10/24/19 03:10 ABG Total CO2 31.0 mmol/L (23-27) H 10/24/19 03:10 ABG O2 Saturation 95.5 % (94-98) 10/24/19 03:10 ABG Base Excess 3.4 mmol/L 10/24/19 03:10 VBG pH 7.47 (7.30-7.42) H 10/23/19 10:25 VBG pCO2 42.3 mmHg (35-63) 10/23/19 10:25 VBG HCO3 30.0 mmol/L (20-32) 10/23/19 10:25 VBG Base Excess 5.6 mmol/L 10/23/19 10:25 FiO2 50% 10/24/19 03:10 Sodium 136.6 mmol/L (137-145) L 10/28/19 04:45 Potassium 4.5 mmol/L (3.6-5.0) 10/28/19 04:45 Chloride 104 mmol/L (98-107) 10/28/19 04:45 Carbon Dioxide 27 mmol/L (22-30) 10/28/19 04:45 Anion Gap 6 (5-19) 10/28/19 04:45 BUN 16 mg/dL (7-20) 10/28/19 04:45 Creatinine 0.81 mg/dL (0.52-1.25) 10/28/19 04:45 Est GFR ( Amer) > 60 (>60) 10/28/19 04:45 Est GFR (MDRD) Non-Af > 60 (>60) 10/28/19 04:45 Glucose 119 mg/dL (75-110) H 10/28/19 04:45 POC Glucose 98 mg/dL (70-110) 10/29/19 10:30 Hemoglobin A1c % 6.5 % (4.7-6.0) H 10/28/19 04:45 Calcium 8.6 mg/dL (8.4-10.2) 10/28/19 04:45 Phosphorus 7.1 mg/dL (2.5-4.5) H 10/23/19 23:41 Magnesium 1.8 mg/dL (1.6-2.3) 10/23/19 23:41 Total Bilirubin 0.9 mg/dL (0.2-1.3) 10/23/19 06:19 Direct Bilirubin 0.2 mg/dL (0.0-0.4) 10/23/19 06:19 Neonat Total Bilirubin Not Reportable 10/23/19 06:19 Neonat Direct Bilirubin Not Reportable 10/23/19 06:19 Neonat Indirect Bili Not Reportable 10/23/19 06:19 AST 26 U/L (17-59) 10/23/19 06:19 ALT 22 U/L (<50) 10/23/19 06:19 Alkaline Phosphatase 75 U/L (38-126) 10/23/19 06:19 Troponin I 0.012 ng/mL 10/23/19 06:19 Total Protein 7.6 g/dL (6.3-8.2) 10/23/19 06:19 Albumin 4.0 g/dL (3.5-5.0) 10/23/19 06:19 Triglycerides 239 mg/dL (<150) H 10/28/19 04:45 Cholesterol 159.08 mg/dL (0-200) 10/28/19 04:45 LDL Cholesterol Direct 102 mg/dL (<100) H 10/28/19 04:45 VLDL Cholesterol 47.8 mg/dL (10-31) H 10/28/19 04:45 HDL Cholesterol 28 mg/dL (>40) L 10/28/19 04:45 Lipase 40.2 U/L (23-300) 10/23/19 06:19 TSH 0.21 uIU/mL (0.47-4.68) L 10/28/19 04:45 Free T4 1.39 ng/dL (0.78-2.19) 10/28/19 04:55 Free T3 pg/mL 1.66 pg/mL (2.77-5.27) L 10/28/19 04:55 Urine Color ONDINA 10/23/19 10:40 Urine Appearance SLIGHTLY-CLOUDY 10/23/19 10:40 Urine pH 5.0 (5.0-9.0) 10/23/19 10:40 Ur Specific [place] 1.028 10/23/19 10:40 Urine Protein >=500 mg/dL (NEGATIVE) H 10/23/19 10:40 Urine Glucose (UA) NEGATIVE mg/dL (NEGATIVE) 10/23/19 10:40 Urine Ketones TRACE mg/dL (NEGATIVE) H 10/23/19 10:40 Urine Blood NEGATIVE (NEGATIVE) 10/23/19 10:40 Urine Nitrite NEGATIVE (NEGATIVE) 10/23/19 10:40 Urine Bilirubin SMALL (NEGATIVE) H 10/23/19 10:40 Urine Urobilinogen NEGATIVE mg/dL (<2.0) 10/23/19 10:40 Ur Leukocyte Esterase NEGATIVE (NEGATIVE) 10/23/19 10:40 Urine WBC (Auto) 2 /HPF 10/23/19 10:40 Urine RBC (Auto) 7 /HPF 10/23/19 10:40 U Hyaline Cast (Auto) 6 /LPF 10/23/19 10:40 Squamous Epi Cells Auto <1 /HPF 10/23/19 10:40 Granular Casts (Auto) 5 /LPF 10/23/19 10:40 Urine Mucus (Auto) FEW /LPF 10/23/19 10:40 Urine Ascorbic Acid NEGATIVE (NEGATIVE) 10/23/19 10:40 Time Trough Drawn 203710/27/19 20:38 Vancomycin Trough 10.7 ug/mL (5.0-20.0) 10/27/19 20:38 Slides for Path Review Cancelled 10/27/19 05:21 10/23/19 06:19 Troponin I 0.012 Impressions: Chest X-Ray 10/23/19 00:00 IMPRESSION: Nasogastric tube in good positioning Chest X-Ray 10/23/19 00:00 IMPRESSION: 1. Intubated 2. Dense consolidation of right upper lobe, likely infiltrate/atelectasis. Cannot exclude an underlying neoplasm. Consider follow-up CT chest if this does not improve after intubation. 3. Nasogastric tube tip in the stomach. Abdomen/Pelvis CT 10/23/19 09:48 IMPRESSION: 1. Small-bowel obstruction with transition point within a ventral hernia. No evidence of bowel ischemia or perforation. 2. Moderate hepatic steatosis. KUB X-Ray 10/23/19 22:32 IMPRESSION: 1. Intubated 2. Dense consolidation of right upper lobe, likely infiltrate/atelectasis. Cannot exclude an underlying neoplasm. Consider follow-up CT chest if this does not improve after intubation. 3. Nasogastric tube tip in the stomach. Chest X-Ray 10/24/19 00:00 IMPRESSION: 1. Improved aeration of right upper lobe collapse. 2. Low lung volumes with persistent left retrocardiac opacity. Stable support lines and tubes. Chest X-Ray 10/26/19 00:00 IMPRESSION: Interval improvement status postextubation. Stroke Is this a Stroke Patient?: No Acute Heart Failure - Is this a Heart Failure Patient?: No
== END 2019-10-29 14:33 | disposition home or self-care (01) | DRG 354 ==
LOC: ER 05:51 → EH 13:02 → ICU 22:23 → 3N 10-26 15:52 → 4S 10-29 01:15
PROVIDERS: ADMIT Family Medicine; ATTEND Internal Medicine
PROC: 0KNK0ZZ Release Right Abdomen Muscle, Open Approach (ICD-10-PCS; 2019-10-23)
PROC: 0WUF0JZ Supplement Abdominal Wall with Synthetic Substitute, Open Approach (ICD-10-PCS; 2019-10-23)
PROC: 0W9F00Z Drainage of Abdominal Wall with Drainage Device, Open Approach (ICD-10-PCS; 2019-10-23)
PROC: 0D9670Z Drainage of Stomach with Drainage Device, Via Natural or Artificial Opening (ICD-10-PCS; 2019-10-23)
PROC: 0WUF0JZ Supplement Abdominal Wall with Synthetic Substitute, Open Approach (ICD-10-PCS; principal; 2019-10-23 17:30)
PROC: 5A09457 Assistance with Respiratory Ventilation, 24-96 Consecutive Hours, Continuous Positive Airway Pressure (ICD-10-PCS; 2019-10-26)
DX: K43.6 Other and unspecified ventral hernia with obstruction, without gangrene (principal); Z68.44 Body mass index [BMI] 60.0-69.9, adult; E66.01 Morbid (severe) obesity due to excess calories; I10 Essential (primary) hypertension; E11.9 Type 2 diabetes mellitus without complications; G89.18 Other acute postprocedural pain; Z87.891 Personal history of nicotine dependence; Z83.438 Family history of other disorder of lipoprotein metabolism and other lipidemia; Z82.49 Family history of ischemic heart disease and other diseases of the circulatory system; Z79.82 Long term (current) use of aspirin; Z79.899 Other long term (current) drug therapy; Z88.5 Allergy status to narcotic agent; Z79.4 Long term (current) use of insulin
CPT/HCPCS: 00750; 36415; 71045; 74018; 74177; 80048; 80053; 80061; 80202; 81001; 82565; 82803; 82962; 83036; 83690; 83735; 84100; 84439; 84443; 84481; 84484; 85025; 85027; 87040; 87077; 87150; 88302; 90686; 93005; 93010; 94002; 94003; 94660; 94667; 94668; 94799; 96361; 96374; 96375; 99231; 99285; 99291; C1781; C9290; J0330; J0696; J1644; J1815; J1885; J2250; J2270; J2405; J2704; J3010; J3370; J3490; J7030; J7060; J7120